=== PATIENT | male | born 1950 | race American Indian/Alaskan Native ===

== ENCOUNTER 2021-05-25 18:03 | Inpatient (IN) | payer SELFPAY ==
[2021-05-25] MEDS ORDERED: ONDANSETRON 4 MG/2 ML INJ ONE (18:38)
[2021-05-25] MEDS ORDERED: SODIUM CHLORIDE 0.9% 1000 ML 1,000 ML ONE (18:38)
[2021-05-25] MEDS ORDERED: SODIUM CHLORIDE 0.9% 1000 ML IV SOLN IV ONE (18:39)
--- NOTE | 2021-05-25 18:46 | Emergency Department Report ---
HPI - General Chief Complaint: Syncope Time Seen by Provider: 05/25/21 18:21 - HPI HPI: Room 19 The patient is a 70-year-old male present with a chief complaint of fatigue. Patient states his symptoms began today with just feeling weak and near syncopa l. Patient states he felt near syncopal because he felt lightheaded. Family has noticed the patient has had decreased p.o. intake for the past 3 days. The patient called his family today stating that he did not feel well and he felt like he was going to pass out. Family arrived on scene and noticed the patient at times had labored respirations. Has been no history of fever or cough. Patient admits to occasional shortness of breath. Patient has not been vaccinated against Covid. ED Past Medical Hx - Past Medical History Previous Medical History?: Yes Hx Hypertension: Yes - Surgical History Past Surgical History?: No - Family History Family history: no significant - Social History Smoking Status: Never Smoker Substance Use Type: None (Denies illicit drug use), Alcohol (Occasional) - Medications Home Medications: Home Medications Medication Instructions Recorded Confirmed Last Taken Type Amlodipine Besylate/Valsartan 1 each PO 05/25/21 05/25/21 08:00 History [Amlodipine-Valsartan 10-160 mg] Amoxicillin/K Clav Tab [Augmentin 1 each PO Q12HR 05/25/21 05/25/21 Unknown History 500 MG TAB] ED Review of Systems ROS: Stated complaint: AMS Other details as noted in HPI Constitutional: malaise. denies: fever Eyes: denies: eye pain ENT: denies: throat pain Respiratory: shortness of breath. denies: cough Cardiovascular: denies: chest pain Endocrine: no symptoms reported Gastrointestinal: nausea. denies: abdominal pain Genitourinary: denies: dysuria Musculoskeletal: denies: back pain Neurological: denies: headache Physical Exam - Physical Exam Vital Signs: Vital Signs 05/25/21 18:03 Temperature 95.6 F L Pulse Rate 117 H Respiratory 23 Rate Blood Pressure 92/36 O2 Sat by Pulse 91 Oximetry Physical Exam: GENERAL: The patient is well-developed well-nourished male lying on stretcher appearing fatigued but in no acute distress. [] HEENT: Normocephalic. Atraumatic. Extraocular motions are intact. Patient has moist mucous membranes. NECK: Supple. Trachea midline CHEST/LUNGS: Clear to auscultation. There is no respiratory distress noted. HEART/CARDIOVASCULAR: Regular. There is tachycardia. There is no gallop rub or murmur. ABDOMEN: Abdomen is soft, nontender. Patient has normal bowel sounds. There is no abdominal distention. SKIN: There is no rash. There is no edema. There is no diaphoresis. NEURO: The patient is awake and oriented but appears fatigued. The patient is cooperative. The patient has no focal neurologic deficits. The patient has normal speech MUSCULOSKELETAL: There is no evidence of acute injury. ED Course Vital Signs 05/25/21 18:03 Temperature 95.6 F L Pulse Rate 117 H Respiratory 23 Rate Blood Pressure 92/36 O2 Sat by Pulse 91 Oximetry - Reevaluation(s) Reevaluation #1: 05/25/21 23:58 CT head negative. Will initiate heparin drip until VQ scan can be performed - Central Line Placement Right Femoral Consent Obtained: verbal consent, written consent Time Out Performed: Yes Patient Placed on Monitor/Pulse Ox: Yes MD Prep: mask, gown, gloves Central Line Prep: Chlorhexidine scrub Local Anesthesia Used: Lidocaine 1% Amount of Anesthesia Used (mls): 5 Ultrasound Used for Placement: No Central Line Lumen Inserted: triple Reason for Insertion: High Alert Medication Bloods Obtained for Lab: No Central Line Position: good blood return, all ports aspirated, flus Dressing Applied: Tegaderm Patient Tolerated Procedure: no complications Complications: none ED Medical Decision Making - Lab Data Result diagrams: 05/25/21 18:53 05/25/21 18:53 Laboratory Tests 05/25/21 05/25/21 05/25/21 18:53 18:53 18:53 WBC 25.7 H RBC 2.77 L Hgb 7.9 L Hct 26.2 L MCV 95 H MCH 29 MCHC 30 L RDW 13.9 Plt Count 321 Lymph % (Auto) [employer]ship Wolfe % (Auto) [employer] Internship Eos % (Auto) [employer] Baso % (Auto) [employer] Internship Lymph # (Auto) [employer]ment Internship Wolfe # (Auto) Proc[employer]ment Internship Eos # (Auto) Proc[employer]ment Internship Baso # (Auto) Proc[employer]ment Internship Add Manual Diff Complete Total Counted 100 Seg Neutrophils % [employer] Seg Neuts % (Manual) 66.0 Band Neutrophils % 3.0 Lymphocytes % (Manual) 21.0 Monocytes % (Manual) 7.0 Basophils % (Manual) 1.0 Metamyelocytes % 2.0 Nucleated RBC % Not Reportable Seg Neutrophils # Proc[employer]ment Internship Seg Neutrophils # Man 17.0 H Band Neutrophils # 0.8 Lymphocytes # (Manual) 5.4 Abs React Lymphs (Man) 0.0 Monocytes # (Manual) 1.8 H Eosinophils # (Manual) 0.0 Basophils # (Manual) 0.3 H Metamyelocytes # 0.5 Myelocytes # 0.0 Promyelocytes # 0.0 Blast Cells # 0.0 WBC Morphology Not Reportable Hypersegmented Neuts Not Reportable Hyposegmented Neuts Not Reportable Hypogranular Neuts Not Reportable Smudge Cells Not Reportable Toxic Granulation Not Reportable Toxic Vacuolation Not Reportable Dohle Bodies Not Reportable Pelger-Huet Anomaly Not Reportable Chela Rods Not Reportable Platelet Estimate Consistent w auto Clumped Platelets Not Reportable Plt Clumps, EDTA Not Reportable Large Platelets Few Giant Platelets Not Reportable Platelet Satelliting Not Reportable Plt Morphology Comment Not Reportable RBC Morphology Not Reportable Dimorphic RBCs Not Reportable Polychromasia Not Reportable Hypochromasia Not Reportable Poikilocytosis Not Reportable Anisocytosis 1+ Microcytosis Not Reportable Macrocytosis Not Reportable Spherocytes Not Reportable Pappenheimer Bodies Not Reportable Sickle Cells Not Reportable Target Cells Not Reportable Tear Drop Cells Not Reportable Ovalocytes Not Reportable Helmet Cells Not Reportable [place] Bodies Not Reportable [place] Rings Not Reportable [place] Cells Not Reportable Bite Cells Not Reportable Crenated Cell Not Reportable Elliptocytes Not Reportable Acanthocytes (Spur) Not Reportable Rouleaux Not Reportable Hemoglobin C Crystals Not Reportable Schistocytes Not Reportable Malaria parasites Not Reportable Justin Bodies Not Reportable Hem Pathologist Commnt No D-Dimer Sodium 138 Potassium 4.4 Chloride 98.6 Carbon Dioxide 15 L Anion Gap 29 BUN 46 H Creatinine 1.9 H Estimated GFR 43 BUN/Creatinine Ratio 24 Glucose 187 H Lactic Acid 13.20 H* Calcium 8.7 Ferritin Total Bilirubin 0.80 AST 62 H ALT 57 H Alkaline Phosphatase 77 Lactate Dehydrogenase 191 H Troponin T < 0.010 C-Reactive Protein 0.00 Total Protein 6.0 L Albumin 2.8 L Albumin/Globulin Ratio 0.9 1105/25/21 05/25/21 18:53 18:53 21:09 WBC RBC Hgb Hct MCV MCH MCHC RDW Plt Count Lymph % (Auto) Wolfe % (Auto) Eos % (Auto) Baso % (Auto) Lymph # (Auto) [place] # (Auto) Eos # (Auto) Baso # (Auto) Add Manual Diff Total Counted Seg Neutrophils % Seg Neuts % (Manual) Band Neutrophils % Lymphocytes % (Manual) Monocytes % (Manual) Basophils % (Manual) Metamyelocytes % Nucleated RBC % Seg Neutrophils # Seg Neutrophils # Man Band Neutrophils # Lymphocytes # (Manual) Abs React Lymphs (Man) Monocytes # (Manual) Eosinophils # (Manual) Basophils # (Manual) Metamyelocytes # Myelocytes # Promyelocytes # Blast Cells # WBC Morphology Hypersegmented Neuts Hyposegmented Neuts Hypogranular Neuts Smudge Cells Toxic Granulation Toxic Vacuolation Dohle Bodies Pelger-Huet Anomaly Chela Rods Platelet Estimate Clumped Platelets Plt Clumps, EDTA Large Platelets Giant Platelets Platelet Satelliting Plt Morphology Comment RBC Morphology Dimorphic RBCs Polychromasia Hypochromasia Poikilocytosis Anisocytosis Microcytosis Macrocytosis Spherocytes Pappenheimer Bodies Sickle Cells Target Cells Tear Drop Cells Ovalocytes Helmet Cells [place] Bodies [place] Rings [place] Cells Bite Cells Crenated Cell Elliptocytes Acanthocytes (Spur) Rouleaux Hemoglobin C Crystals Schistocytes Malaria parasites Justin Bodies Hem Pathologist Commnt D-Dimer 5197.40 H Sodium Potassium Chloride Carbon Dioxide Anion Gap BUN Creatinine Estimated GFR BUN/Creatinine Ratio Glucose Lactic Acid 12.60 H* Calcium Ferritin 521.7 H Total Bilirubin AST ALT Alkaline Phosphatase Lactate Dehydrogenase Troponin T C-Reactive Protein Total Protein Albumin Albumin/Globulin Ratio - Radiology Data Radiology results: report reviewed (Chest x-ray, CT head), image reviewed (Chest x-ray, CT head) interpreted by me: Chest x-ray-no definite focal infiltrates, no pneumothorax [facility] [address] [place] [address] XRay Report Signed Patient: SHARITA KENT MR#: [id number] [birth year] : 1950 Acct:[id number] Age/Sex: 70 / M ADM Date: 05/25/21 Loc: ED Attending Dr: Ordering Physician: ELIO GLEZ MD Date of Service: 05/25/21 Procedure(s): XR chest 1V ap Accession Number(s): [id number] cc: ELIO GLEZ MD Fluoro Time In Minutes: CHEST 1 VIEW 05/25/2021 6:01 PM INDICATION / CLINICAL INFORMATION: Hypoxia, hypotension. COMPARISON: None available. FINDINGS: SUPPORT DEVICES: None. HEART / MEDIASTINUM: No significant abnormality. LUNGS / PLEURA: No significant pulmonary or pleural abnormality. No pneumothorax. ADDITIONAL FINDINGS: No significant additional findings. IMPRESSION: 1. No acute findings. Signer Name: Richard Thapa MD Signed: 05/25/2021 7:15 PM Workstation Name: [id number] Transcribed By: KEITH Dictated By: Richard Thapa MD Electronically Authenticated By: Richard Thapa MD Signed Date/Time: 05/25/211914 DD/ 13 TD/TT: [place] [address] Cat Scan Report Signed Patient: SHARITA KENT MR#: [id number] [birth year] : 1950 Acct:[id number] Age/Sex: 70 / M ADM Date: 05/25/21 Loc: CC1 [id number]: SHAKIRA DARBY MD Ordering Physician: ELIO GLEZ MD Date of Service: 05/25/21 Procedure(s): CT head/brain wo con Accession Number(s): [id number] cc: ELIO GLEZ MD CT HEAD WITHOUT CONTRAST INDICATION: Altered mental status. TECHNIQUE: All CT scans at this location are performed using CT dose reduction for ALARA by means of automated exposure control. COMPARISON: None available. FINDINGS: HEMORRHAGE: None. EXTRA-AXIAL SPACES: Normal in size and morphology for the patient's age. VENTRICULAR SYSTEM: Normal in size and morphology for the patient's age. BRAIN PARENCHYMA: No acute findings. MIDLINE SHIFT OR HERNIATION: None. ORBITS: Normal as visualized. SOFT TISSUES OF HEAD: Normal. CALVARIUM: Normal. VISUALIZED PARANASAL SINUSES AND MASTOID AIR CELLS: Clear. ADDITIONAL FINDINGS: None. IMPRESSION: 1. No acute intracranial abnormality. Signer Name: Asher Gomez MD Signed: 05/25/2021 11:42 PM Workstation Name: [id number] Transcribed By: SW Dictated By: Asher Gomez MD Electro nically Authenticated By: Asher Gomez MD Signed Date/Time: 05/25/212341 DD/ 39 TD/TT: Print Cancel - Medical Decision Making Patient has elevated D-dimer however creatinine is 1.9 precluding CTA at this time. A VQ scan was ordered however I was informed that the camera on machine is not working so we are subsequently unable to obtain a VQ scan tonight - Differential Diagnosis Sepsis Critical care attestation.: If time is entered above; I have spent that time in minutes in the direct care of this critically ill patient, excluding procedure time. ED Disposition Clinical Impression: Altered mental status, Shortness of breath, Suspected COVID-19 virus infection, Tachycardia, Sepsis, Hypothermia, Renal insufficiency Disposition: ADMITTED INPATIENT Is pt being admited?: Yes Does the pt Need Aspirin: No Condition: Serious Time of Disposition: 20:08 (Hospitalist called (Dr. Neville))
--- NOTE | 2021-05-25 19:19 | XRay Report ---
CHEST 1 VIEW 05/25/2021 6:01 PM INDICATION / CLINICAL INFORMATION: Hypoxia, hypotension. COMPARISON: None available. FINDINGS: SUPPORT DEVICES: None. HEART / MEDIASTINUM: No significant abnormality. LUNGS / PLEURA: No significant pulmonary or pleural abnormality. No pneumothorax. ADDITIONAL FINDINGS: No significant additional findings. IMPRESSION: 1. No acute findings. Signer Name: Richard Thapa MD Signed: 05/25/2021 7:15 PM Workstation Name: [id number]
[2021-05-25 19:20] LABS: Hematocrit 26.2 % (35.5-45.6); Hemoglobin 7.9 gm/dl (11.8-15.2); Mean Corpuscular HGB Conc 30 % (32-34); Mean Corpuscular Volume 95 fl (84-94); Platelet Count 321 K/mm3 (140-440); Red Blood Count 2.77 M/mm3 (3.65-5.03); Red Cell Distribution Width 13.9 % (13.2-15.2)
[2021-05-25 19:32] LABS: Alanine Aminotransferase 57 units/L (7-56); Albumin 2.8 g/dL (3.9-5); BUN/Creatinine Ratio 24; Blood Urea Nitrogen 46 mg/dL (9-20); Calcium 8.7 mg/dL (8.4-10.2); Hemolysis Index 17
[2021-05-25] MEDS ORDERED: cefTRIAXone/NS 1 GM/50 ML 1 GM/50 ML BAG IV ONE (20:06)
[2021-05-25] MEDS ORDERED: AZITHROMYCIN/NS 500 MG/250 ML 500 MG/250 ML BAG IV ONE (20:06)
[2021-05-25] MEDS ORDERED: PIPERACILLIN/TAZOBACTAM 3.375 3.375 GM/50 ML BAG IV ONE (20:42)
[2021-05-25 21:21] LABS: Band Neutrophils # (Manual) 0.8 K/mm3; Total Cells Counted 100
[2021-05-25 21:22] LABS: Anisocytosis 1+; Large Platelets Few; Platelet Estimate Consistent w Auto
[2021-05-25] MEDS: NORepinephrine/NS 8 MG-250 ML 8 MG/250 ML INFUS..BTL IV SCH (21:56)
[2021-05-25] MEDS ORDERED: oxyCODONE /ACETAMINOPHEN 5-325MG TAB PO PRN (22:25)
[2021-05-25] MEDS ORDERED: HYDROmorphone 1 MG/1 ML INJ IV PRN (22:25)
[2021-05-25] MEDS ORDERED: ONDANSETRON 4 MG/2 ML INJ IV PRN (22:25)
[2021-05-25] MEDS ORDERED: ALBUTEROL 2.5 MG/3 ML NEBU IH PRN (22:25)
[2021-05-25] MEDS ORDERED: ACETAMINOPHEN 325 MG TAB PO PRN (22:25)
[2021-05-25] MEDS ORDERED: ONDANSETRON 4 MG/2 ML INJ IV ONE (22:28)
[2021-05-25] MEDS ORDERED: SODIUM CHLORIDE 0.9% 1000 ML 1,000 ML IV SCH (22:30)
--- NOTE | 2021-05-25 22:34 | History and Physical Report ---
History of Present Illness Date of examination: 05/25/21 Date of admission: 05/25/21 21:54 Chief complaint: Syncope Weakness History of present illness: 70-year-old male with history of high blood pressure was brought to the emergency room because of fatigue. Patient states his symptoms began today with just feeling weak and near syncopal. Patient states he felt near syncopal because he felt lightheaded. Family has noticed the patient has had decreased p.o. intake for the past 3 days. The patient called his family today stating that he did not feel well and he felt like he was going to pass out. Family arrived on scene and noticed the patient at times had labored respirations. Has been no history of fever or cough. Patient admits to occasional shortness of breath. Patient has not been vaccinated against Covid. In the emergency room patient WBC is 25.7, hemoglobin 7.9 hematocrit 26.2, patient D-dimer is 5197.40. Lactic acid 13.20 BUN of 46 creatinine 1.9. We are going to admit the patient with a diagnosis of sepsis suspected Covid infection metabolic encephalopathy and acute on chronic kidney failure. We consulted critical care and nephrology evaluation Med rec is done Past History Past Medical History: hypertension Medications and Allergies Allergies Allergy/AdvReac Type Severity Reaction Status Date / Time No Known Allergies Allergy Verified 05/25/21 21:01 Home Medications Medication Instructions Recorded Confirmed Last Taken Type Amlodipine Besylate/Valsartan 1 each PO 05/25/21 05/25/21 08:00 History [Amlodipine-Valsartan 10-160 mg] Amoxicillin/K Clav Tab [Augmentin 1 each PO Q12HR 05/25/21 05/25/21 Unknown History 500 MG TAB] Active Meds: Active Medications NORepinephrine/NS 8 MG-250 ML (Norepinephrine/Ns 8 Mg-250 Ml (Double Conc)) 8 mg in 250 mls @ 3.75 mls/hr IV TITRATE STEPHANE; Protocol Last Admin: 05/25/21 21:56 Dose: 5 mcg/min, 9.375 mls/hr Documented by: Review of Systems All systems: negative Constitutional: fatigue, weakness, other (Lightheaded decreased p.o. intake for the last 3 days) Cardiovascular: syncope Exam - Constitutional Vitals: Temp Pulse Resp BP Pulse Ox 98.5 F 112 H 32 H 85/49 97 05/25/21 21:08 05/25/21 21:45 05/25/21 21:45 05/25/21 21:45 05/25/21 21:45 General appearance: Present: mild distress - EENT Eyes: Present: PERRL ENT: hearing intact, clear oral mucosa - Neck Neck: Present: supple, normal ROM - Respiratory Respiratory effort: normal Respiratory: bilateral: diminished - Cardiovascular Heart Sounds: Present: S1 & S2. Absent: rub, click - Extremities Extremities: pulses symmetrical, No edema Peripheral Pulses: within normal limits - Abdominal General gastrointestinal: Present: soft, non-tender, non-distended, normal bowel sounds Male genitourinary: Present: normal - Integumentary Integumentary: Present: clear, warm, dry - Musculoskeletal Musculoskeletal: gait normal, strength equal bilaterally - Psychiatric Psychiatric: appropriate mood/affect, intact judgment & insight - Neurologic Neurologic: CNII-XII intact, moves all extremities HEART Score - HEART Score Troponin: Troponin T < 0.010 ng/mL (0.00-0.029) 05/25/21 18:53 Results - Labs CBC & Chem 7: 05/25/21 18:53 05/25/21 18:53 Labs: Laboratory Last Values WBC 25.7 K/mm3 (4.5-11.0) H 05/25/21 18:53 RBC 2.77 M/mm3 (3.65-5.03) L 05/25/21 18:53 Hgb 7.9 gm/dl (11.8-15.2) L 05/25/21 18:53 Hct 26.2 % (35.5-45.6) L 05/25/21 18:53 MCV 95 fl (84-94) H 05/25/21 18:53 MCH 29 pg (28-32) 05/25/21 18:53 MCHC 30 % (32-34) L 05/25/21 18:53 RDW 13.9 % (13.2-15.2) 05/25/21 18:53 Plt Count 321 K/mm3 (140-440) 05/25/21 18:53 Lymph % (Auto) Donation Worker 05/25/21 18:53 [place] % (Auto) Donation Worker 05/25/21 18:53 Eos % (Auto) Donation Worker 05/25/21 18:53 Baso % (Auto) Donation Worker 05/25/21 18:53 Lymph # (Auto) Donation Worker 05/25/21 18:53 [place] # (Auto) Donation Worker 05/25/21 18:53 Eos # (Auto) Donation Worker 05/25/21 18:53 Baso # (Auto) Donation Worker 05/25/21 18:53 Add Manual Diff Complete 05/25/21 18:53 Total Counted 100 05/25/21 18:53 Seg Neutrophils % Donation Worker 05/25/21 18:53 Seg Neuts % (Manual) 66.0 % (40.0-70.0) 05/25/21 18:53 Band Neutrophils % 3.0 % 05/25/21 18:53 Lymphocytes % (Manual) 21.0 % (13.4-35.0) 05/25/21 18:53 Monocytes % (Manual) 7.0 % (0.0-7.3) 05/25/21 18:53 Basophils % (Manual) 1.0 % (0.0-1.8) 05/25/21 18:53 Metamyelocytes % 2.0 % 05/25/21 18:53 Nucleated RBC % Not Reportable 05/25/21 18:53 Seg Neutrophils # Donation Worker 05/25/21 18:53 Seg Neutrophils # Man 17.0 K/mm3 (1.8-7.7) H 05/25/21 18:53 Band Neutrophils # 0.8 K/mm3 05/25/21 18:53 Lymphocytes # (Manual) 5.4 K/mm3 (1.2-5.4) 05/25/21 18:53 Abs React Lymphs (Man) 0.0 K/mm3 05/25/21 18:53 Monocytes # (Manual) 1.8 K/mm3 (0.0-0.8) H 05/25/21 18:53 Eosinophils # (Manual) 0.0 K/mm3 (0.0-0.4) 05/25/21 18:53 Basophils # (Manual) 0.3 K/mm3 (0.0-0.1) H 05/25/21 18:53 Metamyelocytes # 0.5 K/mm3 05/25/21 18:53 Myelocytes # 0.0 K/mm3 05/25/21 18:53 Promyelocytes # 0.0 K/mm3 05/25/21 18:53 Blast Cells # 0.0 K/mm3 05/25/21 18:53 WBC Morphology Not Reportable 05/25/21 18:53 Hypersegmented Neuts Not Reportable 05/25/21 18:53 Hyposegmented Neuts Not Reportable 05/25/21 18:53 Hypogranular Neuts Not Reportable 05/25/21 18:53 Smudge Cells Not Reportable 05/25/21 18:53 Toxic Granulation Not Reportable 05/25/21 18:53 Toxic Vacuolation Not Reportable 05/25/21 18:53 Dohle Bodies Not Reportable 05/25/21 18:53 Pelger-Huet Anomaly Not Reportable 05/25/21 18:53 Chela Rods Not Reportable 05/25/21 18:53 Platelet Estimate Consistent w auto 05/25/21 18:53 Clumped Platelets Not Reportable 05/25/21 18:53 Plt Clumps, EDTA Not Reportable 05/25/21 18:53 Large Platelets Few 05/25/21 18:53 Giant Platelets Not Reportable 05/25/21 18:53 Platelet Satelliting Not Reportable 05/25/21 18:53 Plt Morphology Comment Not Reportable 05/25/21 18:53 RBC Morphology Not Reportable 05/25/21 18:53 Dimorphic RBCs Not Reportable 05/25/21 18:53 Polychromasia Not Reportable 05/25/21 18:53 Hypochromasia Not Reportable 05/25/21 18:53 Poikilocytosis Not Reportable 05/25/21 18:53 Anisocytosis 1+ 05/25/21 18:53 Microcytosis Not Reportable 05/25/21 18:53 Macrocytosis Not Reportable 05/25/21 18:53 Spherocytes Not Reportable 05/25/21 18:53 Pappenheimer Bodies Not Reportable 05/25/21 18:53 Sickle Cells Not Reportable 05/25/21 18:53 Target Cells Not Reportable 05/25/21 18:53 Tear Drop Cells Not Reportable 05/25/21 18:53 Ovalocytes Not Reportable 05/25/21 18:53 Helmet Cells Not Reportable 05/25/21 18:53 [place] Bodies Not Reportable 05/25/21 18:53 [place] Rings Not Reportable 05/25/21 18:53 Jeni Cells Not Reportable 05/25/21 18:53 Bite Cells Not Reportable 05/25/21 18:53 Crenated Cell Not Reportable 05/25/21 18:53 Elliptocytes Not Reportable 05/25/21 18:53 Acanthocytes (Spur) Not Reportable 05/25/21 18:53 Rouleaux Not Reportable 05/25/21 18:53 Hemoglobin C Crystals Not Reportable 05/25/21 18:53 Schistocytes Not Reportable 05/25/21 18:53 Malaria parasites Not Reportable 05/25/21 18:53 Justin Bodies Not Reportable 05/25/21 18:53 Hem Pathologist Commnt No 05/25/21 18:53 D-Dimer 5197.40 ng/mlDDU (0-234) H 05/25/21 18:53 Sodium 138 mmol/L (137-145) 05/25/21 18:53 Potassium 4.4 mmol/L (3.6-5.0) 05/25/21 18:53 Chloride 98.6 mmol/L (98-107) 05/25/21 18:53 Carbon Dioxide 15 mmol/L (22-30) L 05/25/21 18:53 Anion Gap 29 mmol/L 05/25/21 18:53 BUN 46 mg/dL (9-20) H 05/25/21 18:53 Creatinine 1.9 mg/dL (0.8-1.3) H 05/25/21 18:53 Estimated GFR 43 ml/min 05/25/21 18:53 BUN/Creatinine Ratio 24 % 05/25/21 18:53 Glucose 187 mg/dL (75-100) H 05/25/21 18:53 Lactic Acid 12.60 mmol/L (0.7-2.0) H* 05/25/21 21:09 Calcium 8.7 mg/dL (8.4-10.2) 05/25/21 18:53 Ferritin 521.7 ng/mL (30.0-300.0) H 05/25/21 18:53 Total Bilirubin 0.80 mg/dL (0.1-1.2) 05/25/21 18:53 AST 62 units/L (5-40) H 05/25/21 18:53 ALT 57 units/L (7-56) H 05/25/21 18:53 Alkaline Phosphatase 77 units/L (35-129) 05/25/21 18:53 Lactate Dehydrogenase 191 units/L (91-180) H 05/25/21 18:53 Troponin T < 0.010 ng/mL (0.00-0.029) 05/25/21 18:53 C-Reactive Protein 0.00 mg/dL (0.00-1.30) 05/25/21 18:53 Total Protein 6.0 g/dL (6.3-8.2) L 05/25/21 18:53 Albumin 2.8 g/dL (3.9-5) L 05/25/21 18:53 Albumin/Globulin Ratio 0.9 % 05/25/21 18:53 - Imaging and Cardiology Chest x-ray: report reviewed Assessment and Plan VTE prophylaxis?: Chemical Plan of care discussed with patient/family: Yes - Patient Problems (1) Sepsis Current Visit: Yes Status: Acute Plan to address problem: Admit the patient to the critical care unit. NPO. Normal saline at the rate of 100 cc/h. Rocephin 2 g IV daily and Zithromax 500 mg IV daily. We do the blood cultures sputum culture. Recheck CBC BMP and lactic acid in the morning. Reconsult critical care evaluation (2) Acute metabolic encephalopathy Current Visit: Yes Status: Acute Plan to address problem: Multifactorial most likely infection and renal failure. Oxygen via nasal catheter per minute normal saline 100 cc/h we will monitor the patient closely. 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 DuoNeb by nebulizer every 4 hours as needed. Rocephin 2 g IV daily. Zithromax 500 mg p.o. daily. We will send the Covid PCR. Follow Covid inflammatory marker. If needed please consult infectious disease (4) SHAINA (acute kidney injury) Current Visit: Yes Status: Acute Plan to address problem: Avoid nephrotoxic drug. Normal saline at the rate of 100 cc/h. We will hold amlodipine valsartan. Will consult nephrology for evaluation. Recheck BMP in the morning (5) Hypertension Current Visit: Yes Status: Acute Plan to address problem: Hydralazine 10 mg IV every 6 hours as needed. We will continue the home medication. We will monitor the patient closely (6) Hypothermia Current Visit: Yes Status: Acute Plan to address problem: We will put the patient on 1 blanket we monitor the patient closely (7) Elevated d-dimer Current Visit: Yes Status: Acute Plan to address problem: We are unable to do a CT scan PE protocol because of acute renal failure. We w ill do a VQ scan. We will put the patient on heparin drip as per protocol (8) DVT prophylaxis Current Visit: Yes Status: Acute Plan to address problem: Heparin drip as per protocol for DVT prophylaxis. Pepcid 20 mg IV every 12 hours for GI prophylaxis. Patient is a full code
[2021-05-25] MEDS ORDERED: hydrALAZINE 20 MG/1 ML INJ IV PRN (22:38)
[2021-05-25] MEDS ORDERED: HEPARIN 10,000 UNITS/10 ML VIAL IV PRN (22:42)
[2021-05-25] MEDS ORDERED: HEPARIN/ 0.45% NACL DRIP 25,000 UNIT/500 ML BAG IV SCH (23:00)
--- NOTE | 2021-05-25 23:47 | Cat Scan Report ---
CT HEAD WITHOUT CONTRAST INDICATION: Altered mental status. TECHNIQUE: All CT scans at this location are performed using CT dose reduction for ALARA by means of automated e xposure control. COMPARISON: None available. FINDINGS: HEMORRHAGE: None. EXTRA-AXIAL SPACES: Normal in size and morphology for the patient's age. VENTRICULAR SYSTEM: Normal in size and morphology for the patient's age. BRAIN PARENCHYMA: No acute findings. MIDLINE SHIFT OR HERNIATION: None. ORBITS: Normal as visualized. SOFT TISSUES OF HEAD: Normal. CALVARIUM: Normal. VISUALIZED PARANASAL SINUSES AND MASTOID AIR CELLS: Clear. ADDITIONAL FINDINGS: None. IMPRESSION: 1. No acute intracranial abnormality. Signer Name: Asher Gomez MD Signed: 05/25/2021 11:42 PM Workstation Name: [id number]
[2021-05-26 00:10] LABS: INR 1.52 (0.87-1.13)
[2021-05-26 00:11] LABS: Partial Thromboplastin Time 39.1 Sec. (24.2-36.6)
[2021-05-26 00:38] LABS: Hematocrit 20.7 % (35.5-45.6); Hemoglobin 6.6 gm/dl (11.8-15.2)
[2021-05-26] MEDS: IPRATROPIUM/ALBUTEROL SULFATE 3 ML AMPUL.NEB IH SCH ×4 (02:16→19:22)
[2021-05-26] MEDS ORDERED: DEXTROSE 50% IN WATER (25GM) 50 ML SYRINGE IV ONE ×3 (02:42→05:46)
[2021-05-26] MEDS ORDERED: SUCCINYLCHOLINE CHLORIDE 200 MG/10 ML INJ MDV ONE (02:42)
[2021-05-26] MEDS ORDERED: EPINEPHrine 1 MG/10 ML SYRINGE ONE ×2 (02:42→07:05)
[2021-05-26] MEDS ORDERED: CALCIUM CHLORIDE 1,000 MG/10 ML SYRINGE IV ONE ×2 (02:42→07:05)
[2021-05-26] MEDS ORDERED: SODIUM BICARB 8.4% 50 MEQ/50 ML SYRINGE IV ONE ×3 (02:42→07:05)
[2021-05-26] MEDS ORDERED: ATROPINE 0.1% (1 MG/10 ML) CARDIAC SYRINGE ONE ×2 (02:42→07:05)
--- NOTE | 2021-05-26 03:03 | Event Note ---
Date: 05/26/21 This patient's nurse called me into the room as the patient had a large amount of rectal bleeding and began having agonal breathing. Respiratory therapy was paged. The hospitalist was notified. The patient is unresponsive with shallow respirations and bradypnea. He began to have significant bradycardia so I gave instructions to give a dose of atropine. The patient had hypotension with Levophed being maxed out. With respiratory therapy at bedside I intubated the patient using a glide scope and a MAC 4 blade. He did not require any sedation or paralysis or any RSI meds. I was able to visualize the vocal cords and a 7.5 endotracheal tube was placed through the cords to about 24 cm at the lips. The bulb was inflated with about 7 cc of air. There was condensation seen within the endotracheal tube. There was good color change capnography. There was bilateral breath sounds heard with bag valve ventilation. About the time of th is intubation the patient appeared to lose his pulse and ACLS protocol was initiated. By this time the hospitalist, Dr. Moya, was at bedside and took over supervising ACLS protocol.
[2021-05-26] MEDS ORDERED: DEXTROSE 50% IN WATER (25GM) 50 ML SYRINGE IV PRN (03:15)
--- NOTE | 2021-05-26 03:25 | Event Note ---
Date: 05/26/21 Called by the nurse the patient is having large amount of rectal bleeding and has been agonal breathing. Patient was unresponsive with shallow respiration. Subsequently patient was intubated by the ER physician patient was given atropine. Patient lost pulse subsequently CPR was given as per ACLS protocol. Patient was given 5 epinephrine, 2 atropine, 2 -3 bicarb and calcium gluconate. Patient was given 1 shock. Patient regained ROSC. Patient is getting 2 unit of packed red blood cell. Heparin drip was discontinued. Patient was found hypoglycemic. Patient was given 2 ampoule of D50 and patient is put on D5 normal saline at the rate of 120 cc/h. We will recheck the CBC CMP cardiac enzyme and chest x-ray. Critical care and GI is consulted. Patient is put on Protonix drip. Prognosis is guarded.
[2021-05-26] MEDS ORDERED: SODIUM CHLORIDE 0.9% 500 ML 500 ML IV ONE ×2 (03:26→04:15)
[2021-05-26 03:56] LABS: Mean Corpuscular HGB Conc 30 % (32-34); Mean Corpuscular Volume 95 fl (84-94); Platelet Count 203 K/mm3 (140-440); Red Blood Count 1.76 M/mm3 (3.65-5.03); Red Cell Distribution Width 14.4 % (13.2-15.2)
[2021-05-26 03:57] LABS: Albumin 1.4 g/dL (3.9-5); Calcium 8.2 mg/dL (8.4-10.2)
[2021-05-26 03:58] LABS: Hematocrit 16.7 % (35.5-45.6)
[2021-05-26] MEDS ORDERED: D5W/0.9% NACL 1,000 ML IV SCH (04:00)
[2021-05-26] MEDS ORDERED: PANTOPRAZOLE 80 MG in SODIUM CHLORIDE 0.9% 100 ML IV SCH (04:00)
--- NOTE | 2021-05-26 04:18 | XRay Report ---
CHEST 1 VIEW INDICATION: E T TUBE PLACEMENT. COMPARISON: One day prior. FINDINGS: Support devices: Endotracheal tube has been placed in satisfactory position. Heart: Stable. Lungs/Pleura: No acute pulmonary or pleural findings. IMPRESSION: 1. No complications are seen after endotracheal tube placement. Signer Name: Asher Gomez MD Signed: 05/26/2021 4:13 AM Workstation Name: [id number]
[2021-05-26 04:43] LABS: Anisocytosis 1+; Band Neutrophils # (Manual) 3.3 K/mm3; Large Platelets Few; Nucleated Red Blood Cells 0.5 % (0.0-0.9); Platelet Estimate Consistent w Auto; Total Cells Counted 200
[2021-05-26] MEDS ORDERED: VANCOMYCIN 2,000 MG in SODIUM CHLORIDE 0.9% 500 ML 500 ML IV ONE (05:00)
[2021-05-26] MEDS ORDERED: CEFEPIME/NS 1 GM/100 ML 1 GM/100 ML BAG IV SCH (05:00)
[2021-05-26] MEDS ORDERED: VANCOMYCIN/NS 1 GM/250 ML 1 GM/250 ML BAG IV SCH (05:00)
[2021-05-26] MEDS ORDERED: CALCIUM GLUCONATE 1,000 MG in SODIUM CHLORIDE 0.9% 100 ML IV ONE (05:39)
[2021-05-26] MEDS ORDERED: INSULIN REGULAR, HUMAN 100 UNITS/1 ML IV ONE (05:44)
[2021-05-26] MEDS ORDERED: CALCIUM CHLORIDE 1,000 MG/10 ML SDV IVP ONE (05:45)
[2021-05-26] MEDS ORDERED: SODIUM POLYSTYRENE 15 GM/60 ML ORAL LIQD PO ONE (05:45)
[2021-05-26] MEDS ORDERED: HEPARIN 5,000 UNIT/1 ML VIAL SUB-Q SCH (06:00)
--- NOTE | 2021-05-26 06:54 | Event Note ---
Date: 05/26/21 Patient was coded again. CPR was given as per ACLS protocol. 2 epi 1 bicarb and 1 calcium gluconate is given patient regained ROSC. Patient WBC is 41.3. Hemoglobin 5.2 hematocrit 16.7. ABG showed pH 7.062, PCO2 25.6 PO2 148.1 O2 sat 98.7 Chemistry shows potassium of 6.1 bicarb 8 lactic acid 21.40 glucose 158 BUN 48 creatinine 2.6. Patient is on bicarb drip Levophed IV fluid and Protonix drip we consulted critical care GI and nephrology for evaluation. Talk with the patient sister and inform her about the condition. Prognosis is poor
[2021-05-26] MEDS: NORepinephrine/NS 8 MG-250 ML 8 MG/250 ML INFUS..BTL IV SCH ×4 (07:00→20:00)
[2021-05-26] MEDS: SODIUM BICARBONATE 150 MEQ in DEXTROSE 5% IN WATER 1,000 ML IV SCH ×3 (07:00→22:47)
[2021-05-26] MEDS ORDERED: EPINEPHrine 30 MG/30 ML INJ IV ONE (07:05)
[2021-05-26] MEDS ORDERED: DEXTROSE 50% IN WATER (25GM) 50 ML VIAL IV ONE (07:05)
[2021-05-26] MEDS ORDERED: SODIUM CHLORIDE 0.9% 1000 ML 1,000 ML ONE ×2 (07:41→08:06)
--- NOTE | 2021-05-26 08:24 | XRay Report ---
CHEST 1 VIEW 05/26/2021 7:14 AM INDICATION / CLINICAL INFORMATION: s/p code. COMPARISON: 05/26/2021 FINDINGS: SUPPORT DEVICES: ET tube is satisfactory position HEART / MEDIASTINUM: No significant abnormality. LUNGS / PLEURA: Mild increased pulmonary vascularity and opacities in bilateral lungs are slightly in creased no large pneumothorax Signer Name: Sorin Quick MD Signed: 05/26/2021 8:20 AM Workstation Name: [id number]
--- NOTE | 2021-05-26 08:25 | XRay Report ---
ABDOMEN 1 VIEW 05/26/2021 7:59 AM INDICATION / CLINICAL INFORMATION: NGT placement. COMPARISON: None available. FINDINGS: NG tube extends within the stomach. The sidehole may be just distal to the GE junction. Signer Name: Sorin Quick MD Signed: 05/26/2021 8:20 AM Workstation Name: [id number]
[2021-05-26] MEDS: VASOPRESSIN 20 UNIT in SODIUM CHLORIDE 0.9% 100 ML IV SCH ×2 (08:30→18:20)
[2021-05-26] MEDS: EPINEPHrine 1 MG/1 ML 16 MG in SODIUM CHLORIDE 0.9% 250ML 234 ML IV SCH ×2 (08:45→17:36)
--- NOTE | 2021-05-26 08:50 | Procedure Note ---
Date of procedure: 05/26/21 Pre-op diagnosis: ABLA, hemorrhagic shock, s/p cardiac arrest, acute hypoxic respiratory fail Post-op diagnosis: same Procedure: Min test completed. Ulnar pulse intact. Right radial A-line inserted using sterile technique. Area prepped with chlorhexidine and prepped with sterile field. Arterial line was placed using ultrasound; catheter advanced without difficulty. Line was sutured and tegaderm dressing applied. no biopatch available Arterial waveform observed on bedside monitor. Line flushed and zeroed. RN at bedside. Pt tolerated procedure well. VS remained unstable throughout procedure requiring vasopressor support (time spent placing line not included in daily critical care time) CCT 60 min Anesthesia: none Surgeon: JESSIE CORRALES Estimated blood loss: minimal Pathology: none Condition: critical Disposition: ICU
[2021-05-26] MEDS ORDERED: SODIUM CHLORIDE 0.9% 1000 ML 1,000 ML IV ONE ×3 (09:00→21:50)
[2021-05-26] MEDS: SODIUM BICARB 8.4% 50 MEQ/50 ML SYRINGE IV SCH ×2 (09:22→09:23)
[2021-05-26 09:30] LABS: Hematocrit 25.8 % (35.5-45.6); Hemoglobin 7.8 gm/dl (11.8-15.2); Mean Corpuscular HGB Conc 30 % (32-34); Mean Corpuscular Volume 91 fl (84-94); Platelet Count 193 K/mm3 (140-440); Red Blood Count 2.84 M/mm3 (3.65-5.03)
[2021-05-26 09:45] LABS: Albumin 1.5 g/dL (3.9-5)
[2021-05-26 09:54] LABS: INR 2.27 (0.87-1.13)
[2021-05-26] MEDS ORDERED: cefTRIAXone/NS 2 GM/100 ML 2 GM/100 ML BAG IV SCH ×2 (10:00→20:00)
[2021-05-26] MEDS ORDERED: FAMOTIDINE 20 MG/2 ML INJ IV SCH (10:00)
[2021-05-26] MEDS ORDERED: SODIUM CHLORIDE 0.9% 1000 ML 1,000 ML IV SCH (10:00)
[2021-05-26] MEDS ORDERED: AZITHROMYCIN 250 MG TAB PO SCH (10:00)
[2021-05-26] MEDS: CEFEPIME/NS 1 GM/100 ML 1 GM/100 ML BAG IV SCH ×2 (10:17→18:51)
[2021-05-26] MEDS: SODIUM CHLORIDE 0.9% 500 ML 500 ML IV PRN ×2 (10:18→13:29)
[2021-05-26 10:29] LABS: Partial Thromboplastin Time 63.6 Sec. (24.2-36.6)
[2021-05-26] MEDS: PHENYLEPHRINE 100 MG in SODIUM CHLORIDE 0.9% 90 ML IV SCH ×4 (10:30→22:55)
--- NOTE | 2021-05-26 10:36 | Gastroenterology Consultation ---
History of Present Illness - Reason for Consult Consult date: 05/26/21 GI Bleed Requesting physician: JESSIE CORRALES - History of Present Illness The patient is intubated and not responsive; hx is per the chart and staff. He was brought to the ER by family for weakness of 2-3 days. While there, initial workup was SHAINA on ?CKD, possible pneumonia, but while in the ER he had a Code Blue (has had 2 so far) with a large blood BM. His hct dropped from 25 to 15. He has rec'd 4 more units, and hct now 25 but is still on triple pressors and requiring boluses of epi to maintain BP. He has no old records here, nor are there large abdominal surgical scars. No antiacids on home med profile. Past History Past Medical History: hypertension Past Surgical History: Other (Unknown) Social history: other (Unknown) Family history: other (Unknown) Medications and Allergies Allergies Allergy/AdvReac Type Severity Reaction Status Date / Time No Known Allergies Allergy Verified 05/25/21 21:01 Home Medications Medication Instructions Recorded Confirmed Last Taken Type Amlodipine Besylate/Valsartan 1 each PO 05/25/21 05/25/21 08:00 History [Amlodipine-Valsartan 10-160 mg] Amoxicillin/K Clav Tab [Augmentin 1 each PO Q12HR 05/25/21 05/25/21 Unknown History 500 MG TAB] Active Meds: Active Medications Acetaminophen (Acetaminophen 325 Mg Tab) 650 mg PO Q4H PRN PRN Reason: Pain MILD(1-3)/Fever >100.5/MONSON Albuterol (Albuterol 2.5 Mg/3 Ml Nebu) 2.5 mg IH Q4HRT PRN PRN Reason: Shortness Of Breath Albuterol/Ipratropium (Ipratropium/Albuterol Sulfate 3 Ml Ampul.Neb) 1 ampul IH Q6HRT STEPHANE Last Admin: 05/26/21 09:10 Dose: 1 ampul Documented by: Dextrose (Dextrose 50% In Water (25gm) 50 Ml Syringe) 25 ml IV Q30MIN PRN; Protocol PRN Reason: Hypoglycemia Hydralazine HCl (Hydralazine 20 Mg/1 Ml Inj) 10 mg IV Q6H PRN PRN Reason: Blood Pressure Hydromorphone HCl (Hydromorphone 1 Mg/1 Ml Inj) 0.5 mg IV Q3H PRN PRN Reason: Pain , Severe (7-10) NORepinephrine/NS 8 MG-250 ML (Norepinephrine/Ns 8 Mg-250 Ml (Double Conc)) 8 mg in 250 mls @ 3.75 mls/hr IV TITRATE STEPHANE; Protocol Last Admin: 05/26/21 10:05 Dose: 30 mcg/min, 56.25 mls/hr Documented by: Dextrose/Sodium Chloride (D5ns) 1,000 mls @ 120 mls/hr IV DIRECT STEPHANE Pantoprazole Sodium 80 mg/ (Sodium Chloride) 100 mls @ 10 mls/hr IV DIRECT STEPHANE Azithromycin (Zithromax/Ns) 500 mg in 250 mls @ 250 mls/hr IV Q24H STEPHANE Cefepime HCl (Cefepime/Ns 1 Gm/100 Ml) 1 gm in 100 mls @ 200 mls/hr IV Q12H STEPHANE; Protocol Last Admin: 05/26/21 10:17 Dose: 200 mls/hr Documented by: Vancomycin HCl 1,500 mg/ (Sodium Chloride) 530 mls @ 333.333 mls/hr IV Q24H STEPHANE Sodium Bicarbonate 150 meq/ (Dextrose) 1,150 mls @ 125 mls/hr IV DIRECT STEPHANE Last Admin: 05/26/21 07:00 Dose: 125 mls/hr Documented by: Vasopressin 20 unit/ Sodium (Chloride) 101 mls @ 9.09 mls/hr IV TITR STEPHANE; Protocol Last Admin: 05/26/21 08:30 Dose: 0.03 units/min, 9.09 mls/hr Documented by: Epinephrine 16 mg/ Sodium (Chloride) 250 mls @ 1.875 mls/hr IV TITR STEPHANE; Protocol Last Admin: 05/26/21 08:45 Dose: 2 mcg/min, 1.875 mls/hr Documented by: Sodium Chloride (Nacl 0.9% 500 Ml) 500 mls @ 1 mls/hr IV DIRECT PRN PRN Reason: ARTERIAL LINE FLUSH Last Admin: 05/26/21 10:18 Dose: 1 mls/hr Documented by: Sodium Chloride (Nacl 0.9% 1000 Ml) 1,000 mls @ 999 mls/hr IV DIRECT STEPHANE Last Admin: 05/26/21 09:29 Dose: 999 mls/hr Documented by: Phenylephrine HCl 100 mg/ (Sodium Chloride) 100 mls @ 3 mls/hr IV TITR STEPHANE; Protocol Sodium Chloride (Nacl 0.9% 1000 Ml) 1,000 mls @ 999 mls/hr IV BOLUS ONE Stop: 05/26/21 11:00 Last Admin: 05/26/21 09:35 Dose: 999 mls/hr Documented by: Ondansetron HCl (Ondansetron 4 Mg/2 Ml Inj) 4 mg IV Q8H PRN PRN Reason: Nausea And Vomiting Sodium Bicarbonate (Sodium Bicarb 8.4% 50 Meq/50 Ml Syringe) 50 meq IV ONCE STEPHANE Stop: 05/27/21 08:01 Last Admin: 05/26/21 09:23 Dose: 50 meq Documented by: Sodium Chloride (Sodium Chloride 0.9% 10 Ml Flush Syringe) 10 ml IV BID STEPHANE Sodium Chloride (Sodium Chloride 0.9% 10 Ml Flush Syringe) 10 ml IV PRN PRN PRN Reason: LINE FLUSH I HAVE REVIEWED/RECONCILED MEDICATIONS Review of Systems - Review of Systems ROS unobtainable: due to endotracheal tube Exam - Constitutional Vital Signs: Temp Pulse Resp BP Pulse Ox 93.2 F L 122 H 31 H 76/43 99 05/26/21 06:18 05/26/21 09:10 05/26/21 09:10 05/26/21 08:00 05/26/21 08:00 General appearance: other (Unsedated but unresponsive; minimal movement on vent) - EENT Eyes: PERRL, EOM intact ENT: hearing intact, poor dentition, no thrush, other (NG tube with 500ml dark fluid) - Neck Neck: supple, normal ROM - Respiratory Respiratory effort: normal Respiratory: bilateral: CTA (Vent) - Cardiovascular Heart Rate: 125 Rhythm: regular Heart Sounds: Present: S1 & S2 Extremities: no ischemia Extremity abnormal: edema (1+ peripheral edema) - Gastrointestinal General gastrointestinal: Present: soft, non-tender, non-distended - Integumentary Integumentary: Present: clear, warm, dry - Neurologic Neurological: other (Unsedated and unresponsive) - Labs CBC & Chem 7: 05/26/21 09:11 05/26/21 09:11 Lab Results: Laboratory Results - last 24 hr 05/25/21 05/25/2121 18:53 18:53 18:53 WBC 25.7 H RBC 2.77 L Hgb 7.9 L Hct 26.2 L MCV 95 H MCH 29 MCHC 30 L RDW 13.9 Plt Count 321 Lymph % (Auto) Juice Scaleman [place] % (Auto) Juice Scaleman Eos % (Auto) Juice Scaleman Baso % (Auto) Juice Scaleman Lymph # (Auto) Juice Scaleman [place] # (Auto) Juice Scaleman Eos # (Auto) Juice Scaleman Baso # (Auto) Juice Scaleman Add Manual Diff Complete Total Counted 100 Seg Neutrophils % Juice Scaleman Seg Neuts % (Manual) 66.0 Band Neutrophils % 3.0 Lymphocytes % (Manual) 21.0 Monocytes % (Manual) 7.0 Basophils % (Manual) 1.0 Metamyelocytes % 2.0 Nucleated RBC % Not Reportable Seg Neutrophils # Juice Scaleman Seg Neutrophils # Man 17.0 H Band Neutrophils # 0.8 Lymphocytes # (Manual) 5.4 Abs React Lymphs (Man) 0.0 Monocytes # (Manual) 1.8 H Eosinophils # (Manual) 0.0 Basophils # (Manual) 0.3 H Metamyelocytes # 0.5 Myelocytes # 0.0 Promyelocytes # 0.0 Blast Cells # 0.0 WBC Morphology Not Reportable Hypersegmented Neuts Not Reportable Hyposegmented Neuts Not Reportable Hypogranular Neuts Not Reportable Smudge Cells Not Reportable Toxic Granulation Not Reportable Toxic Vacuolation Not Reportable Dohle Bodies Not Reportable Pelger-Huet Anomaly Not Reportable Chela Rods Not Reportable Platelet Estimate Consistent w auto Clumped Platelets Not Reportable Plt Clumps, EDTA Not Reportable Large Platelets Few Giant Platelets Not Reportable Platelet Satelliting Not Reportable Plt Morphology Comment Not Reportable RBC Morphology Not Reportable Dimorphic RBCs Not Reportable Polychromasia Not Reportable Hypochromasia Not Reportable Poikilocytosis Not Reportable Anisocytosis 1+ Microcytosis Not Reportable Macrocytosis Not Reportable Spherocytes Not Reportable Pappenheimer Bodies Not Reportable Sickle Cells Not Reportable Target Cells Not Reportable Tear Drop Cells Not Reportable Ovalocytes Not Reportable Helmet Cells Not Reportable Elos-Orchard Bodies Not Reportable Sunburst Rings Not Reportable Jeni Cells Not Reportable Bite Cells Not Reportable Crenated Cell Not Reportable Elliptocytes Not Reportable Acanthocytes (Spur) Not Reportable Rouleaux Not Reportable Hemoglobin C Crystals Not Reportable Schistocytes Not Reportable Malaria parasites Not Reportable Justin Bodies Not Reportable Hem Pathologist Commnt No PT INR APTT Fibrinogen D-Dimer Heparin Anti-Xa Level ABG pH POC ABG pCO2 POC ABG pO2 POC ABG HCO3 ABG O2 Saturation POC ABG Base Excess ABG Hemoglobin ABG Oxyhemoglobin ABG Methemoglobin ABG Sodium ABG Potassium ABG Chloride ABG Glucose Carboxyhemoglobin FiO2 % Sodium 138 Potassium 4.4 Chloride 98.6 Carbon Dioxide 15 L Anion Gap 29 BUN 46 H Creatinine 1.9 H Estimated GFR 43 BUN/Creatinine Ratio 24 Glucose 187 H POC Glucose Lactic Acid 13.20 H* Calcium 8.7 Phosphorus Magnesium Ferritin Total Bilirubin 0.80 AST 62 H ALT 57 H Alkaline Phosphatase 77 Lactate Dehydrogenase 191 H Troponin T < 0.010 C-Reactive Protein 0.00 Total Protein 6.0 L Albumin 2.8 L Albumin/Globulin Ratio 0.9 Arterial Blood Glucose Arterial Blood Ionized Calcium Blood Type Antibody Screen Crossmatch 05/25/21 05/25/21 05/25/21 18:53 18:53 21:09 WBC RBC Hgb Hct MCV MCH MCHC RDW Plt Count Lymph % (Auto) [place] % (Auto) Eos % (Auto) Baso % (Auto) Lymph # (Auto) [place] # (Auto) Eos # (Auto) Baso # (Auto) Add Manual Diff Total Counted Seg Neutrophils % Seg Neuts % (Manual) Band Neutrophils % Lymphocytes % (Manual) Monocytes % (Manual) Basophils % (Manual) Metamyelocytes % Nucleated RBC % Seg Neutrophils # Seg Neutrophils # Man Band Neutrophils # Lymphocytes # (Manual) Abs React Lymphs (Man) Monocytes # (Manual) Eosinophils # (Manual) Basophils # (Manual) Metamyelocytes # Myelocytes # Promyelocytes # Blast Cells # WBC Morphology Hypersegmented Neuts Hyposegmented Neuts Hypogranular Neuts Smudge Cells Toxic Granulation Toxic Vacuolation Dohle Bodies Pelger-Huet Anomaly Chela Rods Platelet Estimate Clumped Platelets Plt Clumps, EDTA Large Platelets Giant Platelets Platelet Satelliting Plt Morphology Comment RBC Morphology Dimorphic RBCs Polychromasia Hypochromasia Poikilocytosis Anisocytosis Microcytosis Macrocytosis Spherocytes Pappenheimer Bodies Sickle Cells Target Cells Tear Drop Cells Ovalocytes Helmet Cells Leos-Orchard Bodies Sunburst Rings Earling Cells Bite Cells Crenated Cell Elliptocytes Acanthocytes (Spur) Rouleaux Hemoglobin C Crystals Schistocytes Malaria parasites Justni Bodies Hem Pathologist Commnt PT INR APTT Fibrinogen D-Dimer 5197.40 H Heparin Anti-Xa Level ABG pH POC ABG pCO2 POC ABG pO2 POC ABG HCO3 ABG O2 Saturation POC ABG Base Excess ABG Hemoglobin ABG Oxyhemoglobin ABG Methemoglobin ABG Sodium ABG Potassium ABG Chloride ABG Glucose Carboxyhemoglobin FiO2 % Sodium Potassium Chloride Carbon Dioxide Anion Gap BUN Creatinine Estimated GFR BUN/Creatinine Ratio Glucose POC Glucose Lactic Acid 12.60 H* Calcium Phosphorus Magnesium Ferritin 521.7 H Total Bilirubin AST ALT Alkaline Phosphatase Lactate Dehydrogenase Troponin T C-Reactive Protein Total Protein Albumin Albumin/Globulin Ratio Arterial Blood Glucose Arterial Blood Ionized Calcium Blood Type Antibody Screen Crossmatch 05/25/21 05/25/21 05/25/21 23:35 23:35 23:35 WBC RBC Hgb 6.6 L Hct 20.7 L MCV MCH MCHC RDW Plt Count 253 Lymph % (Auto) [place] % (Auto) Eos % (Auto) Baso % (Auto) Lymph # (Auto) [place] # (Auto) Eos # (Auto) Baso # (Auto) Add Manual Diff Total Counted Seg Neutrophils % Seg Neuts % (Manual) Band Neutrophils % Lymphocytes % (Manual) Monocytes % (Manual) Basophils % (Manual) Metamyelocytes % Nucleated RBC % Seg Neutrophils # Seg Neutrophils # Man Band Neutrophils # Lymphocytes # (Manual) Abs React Lymphs (Man) Monocytes # (Manual) Eosinophils # (Manual) Basophils # (Manual) Metamyelocytes # Myelocytes # Promyelocytes # Blast Cells # WBC Morphology Hypersegmented Neuts Hyposegmented Neuts Hypogranular Neuts Smudge Cells Toxic Granulation Toxic Vacuolation Dohle Bodies Pelger-Huet Anomaly Chela Rods Platelet Estimate Clumped Platelets Plt Clumps, EDTA Large Platelets Giant Platelets Platelet Satelliting Plt Morphology Comment RBC Morphology Dimorphic RBCs Polychromasia Hypochromasia Poikilocytosis Anisocytosis Microcytosis Macrocytosis Spherocytes Pappenheimer Bodies Sickle Cells Target Cells Tear Drop Cells Ovalocytes Helmet Cells Leos-Orchard Bodies Sunburst Rings Earling Cells Bite Cells Crenated Cell Elliptocytes Acanthocytes (Spur) Rouleaux Hemoglobin C Crystals Schistocytes Malaria parasites Justin Bodies Hem Pathologist Commnt PT 19.8 H INR 1.52 H APTT 39.1 H Fibrinogen D-Dimer Heparin Anti-Xa Level ABG pH POC ABG pCO2 POC ABG pO2 POC ABG HCO3 ABG O2 Saturation POC ABG Base Excess ABG Hemoglobin ABG Oxyhemoglobin ABG Methemoglobin ABG Sodium ABG Potassium ABG Chloride ABG Glucose Carboxyhemoglobin FiO2 % Sodium Potassium Chloride Carbon Dioxide Anion Gap BUN Creatinine Estimated GFR BUN/Creatinine Ratio Glucose POC Glucose Lactic Acid 12.00 H* Calcium Phosphorus Magnesium Ferritin Total Bilirubin AST ALT Alkaline Phosphatase Lactate Dehydrogenase Troponin T C-Reactive Protein Total Protein Albumin Albumin/Globulin Ratio Arterial Blood Glucose Arterial Blood Ionized Calcium Blood Type Antibody Screen Crossmatch 05/26/21 05/26/21 05/26/21 03:07 03:20 03:24 WBC 41.3 H* RBC 1.76 L Hgb 5.0 L* Hct 16.7 L* MCV 95 H MCH 28 MCHC 30 L RDW 14.4 Plt Count 203 Lymph % (Auto) [place] % (Auto) Eos % (Auto) Baso % (Auto) Lymph # (Auto) [place] # (Auto) Eos # (Auto) Baso # (Auto) Add Manual Diff Complete Total Counted 200 Seg Neutrophils % Seg Neuts % (Manual) 80.5 H Band Neutrophils % 8.0 Lymphocytes % (Manual) 5.5 L Monocytes % (Manual) 4.0 Basophils % (Manual) 1.0 Metamyelocytes % 1.0 Nucleated RBC % 0.5 Seg Neutrophils # Seg Neutrophils # Man 33.2 H Band Neutrophils # 3.3 Lymphocytes # (Manual) 2.3 Abs React Lymphs (Man) 0.0 Monocytes # (Manual) 1.7 H Eosinophils # (Manual) 0.0 Basophils # (Manual) 0.4 H Metamyelocytes # 0.4 Myelocytes # 0.0 Promyelocytes # 0.0 Blast Cells # 0.0 WBC Morphology Not Reportable Hypersegmented Neuts Not Reportable Hyposegmented Neuts Not Reportable Hypogranular Neuts Not Reportable Smudge Cells Not Reportable Toxic Granulation Not Reportable Toxic Vacuolation Not Reportable Dohle Bodies Not Reportable Pelger-Huet Anomaly Not Reportable Chela Rods Not Reportable Platelet Estimate Consistent w auto Clumped Platelets Not Reportable Plt Clumps, EDTA Not Reportable Large Platelets Few Giant Platelets Not Reportable Platelet Satelliting Not Reportable Plt Morphology Comment Not Reportable RBC Morphology Not Reportable Dimorphic RBCs Not Reportable Polychromasia Not Reportable Hypochromasia Not Reportable Poikilocytosis Not Reportable Anisocytosis 1+ Microcytosis Not Reportable Macrocytosis Not Reportable Spherocytes Not Reportable Pappenheimer Bodies Not Reportable Sickle Cells Not Reportable Target Cells Not Reportable Tear Drop Cells Not Reportable Ovalocytes Not Reportable Helmet Cells Not Reportable Leos-[place] Bodies Not Reportable Sunburst Rings Not Reportable Earling Cells Not Reportable Bite Cells Not Reportable Crenated Cell Not Reportable Elliptocytes Not Reportable Acanthocytes (Spur) Not Reportable Rouleaux Not Reportable Hemoglobin C Crystals Not Reportable Schistocytes Not Reportable Malaria parasites Not Reportable Justin Bodies Not Reportable Hem Pathologist Commnt No PT INR APTT Fibrinogen D-Dimer Heparin Anti-Xa Level ABG pH POC ABG pCO2 POC ABG pO2 POC ABG HCO3 ABG O2 Saturation POC ABG Base Excess ABG Hemoglobin ABG Oxyhemoglobin ABG Methemoglobin ABG Sodium ABG Potassium ABG Chloride ABG Glucose Carboxyhemoglobin FiO2 % Sodium Potassium Chloride Carbon Dioxide Anion Gap BUN Creatinine Estimated GFR BUN/Creatinine Ratio Glucose POC Glucose < 10 L Lactic Acid Calcium Phosphorus Magnesium Ferritin Total Bilirubin AST ALT Alkaline Phosphatase Lactate Dehydrogenase Troponin T C-Reactive Protein Total Protein Albumin Albumin/Globulin Ratio Arterial Blood Glucose Arterial Blood Ionized Calcium Blood Type O POSITIVE Antibody Screen Negative Crossmatch See Detail 05/26/21 05/26/21 05/26/21 03:24 03:24 03:42 WBC RBC Hgb Hct MCV MCH MCHC RDW Plt Count Lymph % (Auto) [place] % (Auto) Eos % (Auto) Baso % (Auto) Lymph # (Auto) [place] # (Auto) Eos # (Auto) Baso # (Auto) Add Manual Diff Total Counted Seg Neutrophils % Seg Neuts % (Manual) Band Neutrophils % Lymphocytes % (Manual) Monocytes % (Manual) Basophils % (Manual) Metamyelocytes % Nucleated RBC % Seg Neutrophils # Seg Neutrophils # Man Band Neutrophils # Lymphocytes # (Manual) Abs React Lymphs (Man) Monocytes # (Manual) Eosinophils # (Manual) Basophils # (Manual) Metamyelocytes # Myelocytes # Promyelocytes # Blast Cells # WBC Morphology Hypersegmented Neuts Hyposegmented Neuts Hypogranular Neuts Smudge Cells Toxic Granulation Toxic Vacuolation Dohle Bodies Pelger-Huet Anomaly Chela Rods Platelet Estimate Clumped Platelets Plt Clumps, EDTA Large Platelets Giant Platelets Platelet Satelliting Plt Morphology Comment RBC Morphology Dimorphic RBCs Polychromasia Hypochromasia Poikilocytosis Anisocytosis Microcytosis Macrocytosis Spherocytes Pappenheimer Bodies Sickle Cells Target Cells Tear Drop Cells Ovalocytes Helmet Cells Leos-Orchard Bodies Sunburst Rings Jeni Cells Bite Cells Crenated Cell Elliptocytes Acanthocytes (Spur) Rouleaux Hemoglobin C Crystals Schistocytes Malaria parasites Justin Bodies Hem Pathologist Commnt PT INR APTT 152.2 H* Fibrinogen D-Dimer Heparin Anti-Xa Level ABG pH POC ABG pCO2 POC ABG pO2 POC ABG HCO3 ABG O2 Saturation POC ABG Base Excess ABG Hemoglobin ABG Oxyhemoglobin ABG Methemoglobin ABG Sodium ABG Potassium ABG Chloride ABG Glucose Carboxyhemoglobin FiO2 % Sodium 141 Potassium 6.1 H* D Chloride 101.5 Carbon Dioxide 8 L* D Anion Gap 38 BUN 48 H Creatinine 2.6 H Estimated GFR 30 BUN/Creatinine Ratio 18 Glucose 478 H POC Glucose Lactic Acid 21.40 H* Calcium 8.2 L Phosphorus Magnesium Ferritin Total Bilirubin 0.90 AST 1587 H ALT 1311 H Alkaline Phosphatase 64 Lactate Dehydrogenase Troponin T C-Reactive Protein Total Protein 3.2 L D Albumin 1.4 L Albumin/Globulin Ratio 0.8 Arterial Blood Glucose Arterial Blood Ionized Calcium Blood Type Antibody Screen Crossmatch 05/26/21 05/26/21 05/26/21 03:46 05:27 05:56 WBC RBC Hgb Hct MCV MCH MCHC RDW Plt Count Lymph % (Auto) [place] % (Auto) Eos % (Auto) Baso % (Auto) Lymph # (Auto) [place] # (Auto) Eos # (Auto) Baso # (Auto) Add Manual Diff Total Counted Seg Neutrophils % Seg Neuts % (Manual) Band Neutrophils % Lymphocytes % (Manual) Monocytes % (Manual) Basophils % (Manual) Metamyelocytes % Nucleated RBC % Seg Neutrophils # Seg Neutrophils # Man Band Neutrophils # Lymphocytes # (Manual) Abs React Lymphs (Man) Monocytes # (Manual) Eosinophils # (Manual) Basophils # (Manual) Metamyelocytes # Myelocytes # Promyelocytes # Blast Cells # WBC Morphology Hypersegmented Neuts Hyposegmented Neuts Hypogranular Neuts Smudge Cells Toxic Granulation Toxic Vacuolation Dohle Bodies Pelger-Huet Anomaly Chela Rods Platelet Estimate Clumped Platelets Plt Clumps, EDTA Large Platelets Giant Platelets Platelet Satelliting Plt Morphology Comment RBC Morphology Dimorphic RBCs Polychromasia Hypochromasia Poikilocytosis Anisocytosis Microcytosis Macrocytosis Spherocytes Pappenheimer Bodies Sickle Cells Target Cells Tear Drop Cells Ovalocytes Helmet Cells Leos-Orchard Bodies Sunburst Rings Jeni Cells Bite Cells Crenated Cell Elliptocytes Acanthocytes (Spur) Rouleaux Hemoglobin C Crystals Schistocytes Malaria parasites Justin Bodies Hem Pathologist Commnt PT INR APTT Fibrinogen D-Dimer Heparin Anti-Xa Level ABG pH 7.062 L POC ABG pCO2 25.6 L POC ABG pO2 148.1 H POC ABG HCO3 7.1 ABG O2 Saturation 98.7 POC ABG Base Excess -21.4 ABG Hemoglobin 7.5 L ABG Oxyhemoglobin 96.9 ABG Methemoglobin 0.3 ABG Sodium 137.6 ABG Potassium 6.5 H ABG Chloride 110.0 H ABG Glucose 134 H Carboxyhemoglobin 1.5 FiO2 % 80.0 Sodium Potassium Chloride Carbon Dioxide Anion Gap BUN Creatinine Estimated GFR BUN/Creatinine Ratio Glucose POC Glucose 167 H 128 H Lactic Acid Calcium Phosphorus Magnesium Ferritin Total Bilirubin AST ALT Alkaline Phosphatase Lactate Dehydrogenase Troponin T C-Reactive Protein Total Protein Albumin Albumin/Globulin Ratio Arterial Blood Glucose 134 H Arterial Blood Ionized Calcium 4.4 L Blood Type Antibody Screen Crossmatch 05/26/21 05/26/21 05/26/21 06:38 07:12 07:19 WBC RBC Hgb Hct MCV MCH MCHC RDW Plt Count Lymph % (Auto) [place] % (Auto) Eos % (Auto) Baso % (Auto) Lymph # (Auto) [place] # (Auto) Eos # (Auto) Baso # (Auto) Add Manual Diff Total Counted Seg Neutrophils % Seg Neuts % (Manual) Band Neutrophils % Lymphocytes % (Manual) Monocytes % (Manual) Basophils % (Manual) Metamyelocytes % Nucleated RBC % Seg Neutrophils # Seg Neutrophils # Man Band Neutrophils # Lymphocytes # (Manual) Abs React Lymphs (Man) Monocytes # (Manual) Eosinophils # (Manual) Basophils # (Manual) Metamyelocytes # Myelocytes # Promyelocytes # Blast Cells # WBC Morphology Hypersegmented Neuts Hyposegmented Neuts Hypogranular Neuts Smudge Cells Toxic Granulation Toxic Vacuolation Dohle Bodies Pelger-Huet Anomaly Chela Rods Platelet Estimate Clumped Platelets Plt Clumps, EDTA Large Platelets Giant Platelets Platelet Satelliting Plt Morphology Comment RBC Morphology Dimorphic RBCs Polychromasia Hypochromasia Poikilocytosis Anisocytosis Microcytosis Macrocytosis Spherocytes Pappenheimer Bodies Sickle Cells Target Cells Tear Drop Cells Ovalocytes Helmet Cells Leos-Orchard Bodies Sunburst Rings Earling Cells Bite Cells Crenated Cell Elliptocytes Acanthocytes (Spur) Rouleaux Hemoglobin C Crystals Schistocytes Malaria parasites Justin Bodies Hem Pathologist Commnt PT 27.0 H INR 2.27 H APTT 63.6 H* Fibrinogen 108 L* D-Dimer 8612.82 H Heparin Anti-Xa Level 0.10 L ABG pH POC ABG pCO2 POC ABG pO2 POC ABG HCO3 ABG O2 Saturation POC ABG Base Excess ABG Hemoglobin ABG Oxyhemoglobin ABG Methemoglobin ABG Sodium ABG Potassium ABG Chloride ABG Glucose Carboxyhemoglobin FiO2 % Sodium Potassium Chloride Carbon Dioxide Anion Gap BUN Creatinine Estimated GFR BUN/Creatinine Ratio Glucose POC Glucose 158 H 124 H Lactic Acid Calcium Phosphorus Magnesium Ferritin Total Bilirubin AST ALT Alkaline Phosphatase Lactate Dehydrogenase Troponin T C-Reactive Protein Total Protein Albumin Albumin/Globulin Ratio Arterial Blood Glucose Arterial Blood Ionized Calcium Blood Type Antibody Screen Crossmatch 05/26/21 05/26/21 05/26/21 07:34 09:11 09:11 WBC 29.1 H RBC 2.84 L Hgb 7.8 L Hct 25.8 L D MCV 91 MCH 28 MCHC 30 L RDW 15.0 Plt Count 193 Lymph % (Auto) [place] % (Auto) Eos % (Auto) Baso % (Auto) Lymph # (Auto) [place] # (Auto) Eos # (Auto) Baso # (Auto) Add Manual Diff Total Counted Seg Neutrophils % Seg Neuts % (Manual) Band Neutrophils % Lymphocytes % (Manual) Monocytes % (Manual) Basophils % (Manual) Metamyelocytes % Nucleated RBC % Seg Neutrophils # Seg Neutrophils # Man Band Neutrophils # Lymphocytes # (Manual) Abs React Lymphs (Man) Monocytes # (Manual) Eosinophils # (Manual) Basophils # (Manual) Metamyelocytes # Myelocytes # Promyelocytes # Blast Cells # WBC Morphology Hypersegmented Neuts Hyposegmented Neuts Hypogranular Neuts Smudge Cells Toxic Granulation Toxic Vacuolation Dohle Bodies Pelger-Huet Anomaly Chela Rods Platelet Estimate Clumped Platelets Plt Clumps, EDTA Large Platelets Giant Platelets Platelet Satelliting Plt Morphology Comment RBC Morphology Dimorphic RBCs Polychromasia Hypochromasia Poikilocytosis Anisocytosis Microcytosis Macrocytosis Spherocytes Pappenheimer Bodies Sickle Cells Target Cells Tear Drop Cells Ovalocytes Helmet Cells Leos-[place] Bodies Sunburst Rings Jeni Cells Bite Cells Crenated Cell Elliptocytes Acanthocytes (Spur) Rouleaux Hemoglobin C Crystals Schistocytes Malaria parasites Justin Bodies Hem Pathologist Commnt PT INR APTT Fibrinogen D-Dimer Heparin Anti-Xa Level ABG pH 7.048 L POC ABG pCO2 29.7 L POC ABG pO2 79.9 L POC ABG HCO3 8.0 ABG O2 Saturation 91.1 POC ABG Base Excess -20.9 ABG Hemoglobin 7.9 L ABG Oxyhemoglobin 89.6 L ABG Methemoglobin 0.3 ABG Sodium 141.1 ABG Potassium 5.2 H ABG Chloride 109.0 H ABG Glucose 144 H Carboxyhemoglobin 1.3 FiO2 % 60.0 Sodium 149 H D Potassium 4.8 D Chloride 107.6 H Carbon Dioxide 11 L Anion Gap 35 BUN 51 H Creatinine 2.5 H Estimated GFR 31 BUN/Creatinine Ratio 20 Glucose 150 H POC Glucose Lactic Acid Calcium 7.0 L Phosphorus 7.30 H Magnesium 2.30 Ferritin Total Bilirubin 1.00 AST 4071 H ALT 2728 H Alkaline Phosphatase 93 Lactate Dehydrogenase Troponin T C-Reactive Protein Total Protein 3.2 L Albumin 1.5 L Albumin/Globulin Ratio 0.9 Arterial Blood Glucose 144 H Arterial Blood Ionized Calcium Blood Type Antibody Screen Crossmatch 05/26/21 09:11 WBC RBC Hgb Hct MCV MCH MCHC RDW Plt Count Lymph % (Auto) [place] % (Auto) Eos % (Auto) Baso % (Auto) Lymph # (Auto) [place] # (Auto) Eos # (Auto) Baso # (Auto) Add Manual Diff Total Counted Seg Neutrophils % Seg Neuts % (Manual) Band Neutrophils % Lymphocytes % (Manual) Monocytes % (Manual) Basophils % (Manual) Metamyelocytes % Nucleated RBC % Seg Neutrophils # Seg Neutrophils # Man Band Neutrophils # Lymphocytes # (Manual) Abs React Lymphs (Man) Monocytes # (Manual) Eosinophils # (Manual) Basophils # (Manual) Metamyelocytes # Myelocytes # Promyelocytes # Blast Cells # WBC Morphology Hypersegmented Neuts Hyposegmented Neuts Hypogranular Neuts Smudge Cells Toxic Granulation Toxic Vacuolation Dohle Bodies Pelger-Huet Anomaly Chela Rods Platelet Estimate Clumped Platelets Plt Clumps, EDTA Large Platelets Giant Platelets Platelet Satelliting Plt Morphology Comment RBC Morphology Dimorphic RBCs Polychromasia Hypochromasia Poikilocytosis Anisocytosis Microcytosis Macrocytosis Spherocytes Pappenheimer Bodies Sickle Cells Target Cells Tear Drop Cells Ovalocytes Helmet Cells Leos-Orchard Bodies Sunburst Rings Earling Cells Bite Cells Crenated Cell Elliptocytes Acanthocytes (Spur) Rouleaux Hemoglobin C Crystals Schistocytes Malaria parasites Justin Bodies Hem Pathologist Commnt PT INR APTT Fibrinogen D-Dimer Heparin Anti-Xa Level ABG pH POC ABG pCO2 POC ABG pO2 POC ABG HCO3 ABG O2 Saturation POC ABG Base Excess ABG Hemoglobin ABG Oxyhemoglobin ABG Methemoglobin ABG Sodium ABG Potassium ABG Chloride ABG Glucose Carboxyhemoglobin FiO2 % Sodium Potassium Chloride Carbon Dioxide Anion Gap BUN Creatinine Estimated GFR BUN/Creatinine Ratio Glucose POC Glucose Lactic Acid 21.80 H* Calcium Phosphorus Magnesium Ferritin Total Bilirubin AST ALT Alkaline Phosphatase Lactate Dehydrogenase Troponin T C-Reactive Protein Total Protein Albumin Albumin/Globulin Ratio Arterial Blood Glucose Arterial Blood Ionized Calcium Blood Type Antibody Screen Crossmatch Assessment and Plan - Patient Problems (1) GI bleed Current Visit: Yes Status: Acute Plan to address problem: - We can consider diagnostic EGD if the BP can stabilize and arrhythmias decrease. - Protonix gtt started; avoid NSAIDs. - Volume resuscitation; coagulopathy correction. (2) Cardiac arrest Current Visit: Yes Status: Acute
[2021-05-26 10:39] LABS: Band Neutrophils # (Manual) 6.1 K/mm3; Giant Platelets Few; Large Platelets Few; Myelocytes # (Manual) 1.5 K/mm3; Total Cells Counted 100
[2021-05-26 10:40] LABS: Platelet Estimate Consistent w Auto
[2021-05-26 10:41] LABS: Toxic Vacuolation 1+
--- NOTE | 2021-05-26 11:07 | Consultation ---
History of Present Illness Consult date: 05/26/21 Reason for Consult: post cardiac arrest,COVID-19 Positive, GI bleeding History of present illness: Syncope Weakness History of present illness: 70-year-old male with history of high blood pressure was brought to the e mergency room because of fatigue. Patient states his symptoms began today with just feeling weak and near syncopal. Patient states he felt near syncopal because he felt lightheaded. Family has noticed the patient has had decreased p.o. intake for the past 3 days. The patient called his family today stating that he did not feel well and he felt like he was going to pass out. Family arrived on scene and noticed the patient at times had labored respirations. Has been no history of fever or cough. Patient admits to occasional shortness of breath. Patient has not been vaccinated against Covid. In the emergency room patient WBC is 25.7, hemoglobin 7.9 hematocrit 26.2, patient D-dimer is 5197.40. Lactic acid 13.20 BUN of 46 creatinine 1.9. We are going to admit the patient with a diagnosis of sepsis suspected Covid infection metabolic encephalopathy and acute on chronic kidney failure. early this am pt. had cardiac arrest X 2 times patient is intubated and not responsive; hx is per the chart and staff. in the ER he had a Code Blue (has had 2 so far) with a large blood BM. His hct dropped from 25 to 15. He has rec'd 4 more units, and hct now 25 but is still on triple pressors and requiring boluses of epi to maintain BP. He has no old records here, nor are there large abdominal surgical scars. No antiacids on home med profile. 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 pt. is on no sedation . he is hypothermic with temp,#93.2 currently on heating blanket Med rec is done Past History Past Medical History: hypertension Medications and Allergies Allergies Allergy/AdvReac Type Severity Reaction Status Date / Time No Known Allergies Allergy Verified 05/25/21 21:01 Home Medications Medication Instructions Recorded Confirmed Last Taken Type Amlodipine Besylate/Valsartan 1 each PO 05/25/21 05/25/21 08:00 History [Amlodipine-Valsartan 10-160 mg] Amoxicillin/K Clav Tab [Augmentin 1 each PO Q12HR 05/25/21 05/25/21 Unknown History 500 MG TAB] Active Meds: Active Medications NORepinephrine/NS 8 MG-250 ML (Norepinephrine/Ns 8 Mg-250 Ml (Double Conc)) 8 mg in 250 mls @ 3.75 mls/hr IV TITRATE STEPHANE; Protocol Last Admin: 05/25/21 21:56 Dose: 5 mcg/min, 9.375 mls/hr Documented by: Review of Systems All systems: negative Constitutional: fatigue, weakness, other (Lightheaded decreased p.o. intake for the last 3 days) Cardiovascular: syncope Past History Past Medical History: hypertension Past Surgical History: Other (Unknown) Social history: other (Unknown) Family history: other (Unknown) Medications and Allergies Allergies Allergy/AdvReac Type Severity Reaction Status Date / Time No Known Allergies Allergy Verified 05/25/21 21:01 Home Medications Medication Instructions Recorded Confirmed Last Taken Type Amlodipine Besylate/Valsartan 1 each PO 05/25/21 05/25/21 08:00 History [Amlodipine-Valsartan 10-160 mg] Amoxicillin/K Clav Tab [Augmentin 1 each PO Q12HR 05/25/21 05/25/21 Unknown History 500 MG TAB] Active Meds: Active Medications Acetaminophen (Acetaminophen 325 Mg Tab) 650 mg PO Q4H PRN PRN Reason: Pain MILD(1-3)/Fever >100.5/[place] Albuterol (Albuterol 2.5 Mg/3 Ml Nebu) 2.5 mg IH Q4HRT PRN PRN Reason: Shortness Of Breath Albuterol/Ipratropium (Ipratropium/Albuterol Sulfate 3 Ml Ampul.Neb) 1 ampul IH Q6HRT [facility] Last Admin: 05/26/21 09:10 Dose: 1 ampul Documented by: Dextrose (Dextrose 50% In Water (25gm) 50 Ml Syringe) 25 ml IV Q30MIN PRN; Protocol PRN Reason: Hypoglycemia Hydralazine HCl (Hydralazine 20 Mg/1 Ml Inj) 10 mg IV Q6H PRN PRN Reason: Blood Pressure Hydromorphone HCl (Hydromorphone 1 Mg/1 Ml Inj) 0.5 mg IV Q3H PRN PRN Reason: Pain , Severe (7-10) NORepinephrine/NS 8 MG-250 ML (Norepinephrine/Ns 8 Mg-250 Ml (Double Conc)) 8 mg in 250 mls @ 3.75 mls/hr IV TITRATE STEPHANE; Protocol Last Admin: 05/26/21 10:05 Dose: 30 mcg/min, 56.25 mls/hr Documented by: Dextrose/Sodium Chloride (D5ns) 1,000 mls @ 120 mls/hr IV DIRECT STEPHANE Pantoprazole Sodium 80 mg/ (Sodium Chloride) 100 mls @ 10 mls/hr IV DIRECT STEPHANE Azithromycin (Zithromax/Ns) 500 mg in 250 mls @ 250 mls/hr IV Q24H STEPHANE Cefepime HCl (Cefepime/Ns 1 Gm/100 Ml) 1 gm in 100 mls @ 200 mls/hr IV Q12H STEPHANE; Protocol Last Admin: 05/26/21 10:17 Dose: 200 mls/hr Documented by: Vancomycin HCl 1,500 mg/ (Sodium Chloride) 530 mls @ 333.333 mls/hr IV Q24H STEPHANE Sodium Bicarbonate 150 meq/ (Dextrose) 1,150 mls @ 125 mls/hr IV DIRECT STEPHANE Last Admin: 05/26/21 07:00 Dose: 125 mls/hr Documented by: Vasopressin 20 unit/ Sodium (Chloride) 101 mls @ 9.09 mls/hr IV TITR STEPHANE; Protocol Last Admin: 05/26/21 08:30 Dose: 0.03 units/min, 9.09 mls/hr Documented by: Epinephrine 16 mg/ Sodium (Chloride) 250 mls @ 1.875 mls/hr IV TITR STEPHANE; Protocol Last Admin: 05/26/21 08:45 Dose: 2 mcg/min, 1.875 mls/hr Documented by: Sodium Chloride (Nacl 0.9% 500 Ml) 500 mls @ 1 mls/hr IV DIRECT PRN PRN Reason: ARTERIAL LINE FLUSH Last Admin: 05/26/21 10:18 Dose: 1 mls/hr Documented by: Sodium Chloride (Nacl 0.9% 1000 Ml) 1,000 mls @ 999 mls/hr IV DIRECT STEPHANE Last Admin: 05/26/21 09:29 Dose: 999 mls/hr Documented by: Phenylephrine HCl 100 mg/ (Sodium Chloride) 100 mls @ 3 mls/hr IV TITR STEPHANE; Protocol Ondansetron HCl (Ondansetron 4 Mg/2 Ml Inj) 4 mg IV Q8H PRN PRN Reason: Nausea And Vomiting Sodium Bicarbonate (Sodium Bicarb 8.4% 50 Meq/50 Ml Syringe) 50 meq IV ONCE STEPHANE Stop: 05/27/21 08:01 Last Admin: 05/26/21 09:23 Dose: 50 meq Documented by: Sodium Chloride (Sodium Chloride 0.9% 10 Ml Flush Syringe) 10 ml IV BID STEPHANE Sodium Chloride (Sodium Chloride 0.9% 10 Ml Flush Syringe) 10 ml IV PRN PRN PRN Reason: LINE FLUSH Physical Examination - Vital Signs Vital Signs: Vital Signs Temp Pulse Resp BP Pulse Ox 95.6 F L 117 H 23 92/36 91 05/25/21 18:03 05/25/21 18:03 05/25/21 18:03 05/25/21 18:03 05/25/21 18:03 - Constitutional General appearance: other (unresponsive ) - EENT EENT: Present: PERRL, mucous membranes moist - Respiratory Respiratory: Present: lungs clear, rhonchi - Cardiovascular Cardiovascular: Present: regular rate, normal S1, normal S2 Extremities: Present: no peripheral edema bilatateraly, no clubbing, cyanosis - Gastrointestinal Gastrointestinal: Present: normoactive bowel sounds - Integumentary Integumentary: Present: normal - Neurologic Cranial nerve examination: PERRL, other (eyes slightly deviated to left EMO is slightly intact , pupils reactive 3mm , no corneal no gag , no spontaneous breathing ) Detailed motor examination: other (no movment to stimuli , no posturing is noted) Results - Laboratory Findings CBC and BMP: 05/26/21 09:11 05/26/21 09:11 Abnormal Lab Findings: Abnormal Labs 05/25/21 05/25/21 05/25/21 18:53 18:53 18:53 WBC 25.7 H RBC 2.77 L Hgb 7.9 L Hct 26.2 L MCV 95 H MCHC 30 L Seg Neuts % (Manual) Lymphocytes % (Manual) Nucleated RBC % Seg Neutrophils # Man 17.0 H Lymphocytes # (Manual) Monocytes # (Manual) 1.8 H Basophils # (Manual) 0.3 H PT INR APTT Fibrinogen D-Dimer Heparin Anti-Xa Level ABG pH POC ABG pCO2 POC ABG pO2 ABG Hemoglobin ABG Oxyhemoglobin ABG Potassium ABG Chloride ABG Glucose Sodium Potassium Chloride Carbon Dioxide 15 L BUN 46 H Creatinine 1.9 H Glucose 187 H POC Glucose Lactic Acid 13.20 H* Calcium Phosphorus Ferritin AST 62 H ALT 57 H Lactate Dehydrogenase 191 H Total Protein 6.0 L Albumin 2.8 L Arterial Blood Glucose Arterial Blood Ionized Calcium Crossmatch 05/25/21 05/25/21 05/25/21 18:53 18:53 21:09 WBC RBC Hgb Hct MCV MCHC Seg Neuts % (Manual) Lymphocytes % (Manual) Nucleated RBC % Seg Neutrophils # Man Lymphocytes # (Manual) Monocytes # (Manual) Basophils # (Manual) PT INR APTT Fibrinogen D-Dimer 5197.40 H Heparin Anti-Xa Level ABG pH POC ABG pCO2 POC ABG pO2 ABG Hemoglobin ABG Oxyhemoglobin ABG Potassium ABG Chloride ABG Glucose Sodium Potassium Chloride Carbon Dioxide BUN Creatinine Glucose POC Glucose Lactic Acid 12.60 H* Calcium Phosphorus Ferritin 521.7 H AST ALT Lactate Dehydrogenase Total Protein Albumin Arterial Blood Glucose Arterial Blood Ionized Calcium Crossmatch 05/25/21 05/25/21 05/25/21 23:35 23:35 23:35 WBC RBC Hgb 6.6 L Hct 20.7 L MCV MCHC Seg Neuts % (Manual) Lymphocytes % (Manual) Nucleated RBC % Seg Neutrophils # Man Lymphocytes # (Manual) Monocytes # (Manual) Basophils # (Manual) PT 19.8 H INR 1.52 H APTT 39.1 H Fibrinogen D-Dimer Heparin Anti-Xa Level ABG pH POC ABG pCO2 POC ABG pO2 ABG Hemoglobin ABG Oxyhemoglobin ABG Potassium ABG Chloride ABG Glucose Sodium Potassium Chloride Carbon Dioxide BUN Creatinine Glucose POC Glucose Lactic Acid 12.00 H* Calcium Phosphorus Ferritin AST ALT Lactate Dehydrogenase Total Protein Albumin Arterial Blood Glucose Arterial Blood Ionized Calcium Crossmatch 05/26/21 05/26/21 05/26/21 03:07 03:20 03:24 WBC 41.3 H* RBC 1.76 L Hgb 5.0 L* Hct 16.7 L* MCV 95 H MCHC 30 L Seg Neuts % (Manual) 80.5 H Lymphocytes % (Manual) 5.5 L Nucleated RBC % Seg Neutrophils # Man 33.2 H Lymphocytes # (Manual) Monocytes # (Manual) 1.7 H Basophils # (Manual) 0.4 H PT INR APTT Fibrinogen D-Dimer Heparin Anti-Xa Level ABG pH POC ABG pCO2 POC ABG pO2 ABG Hemoglobin ABG Oxyhemoglobin ABG Potassium ABG Chloride ABG Glucose Sodium Potassium Chloride Carbon Dioxide BUN Creatinine Glucose POC Glucose < 10 L Lactic Acid Calcium Phosphorus Ferritin AST ALT Lactate Dehydrogenase Total Protein Albumin Arterial Blood Glucose Arterial Blood Ionized Calcium Crossmatch See Detail 05/26/21 05/26/21 05/26/21 03:24 03:24 03:42 WBC RBC Hgb Hct MCV MCHC Seg Neuts % (Manual) Lymphocytes % (Manual) Nucleated RBC % Seg Neutrophils # Man Lymphocytes # (Manual) Monocytes # (Manual) Basophils # (Manual) PT INR APTT 152.2 H* Fibrinogen D-Dimer Heparin Anti-Xa Level ABG pH POC ABG pCO2 POC ABG pO2 ABG Hemoglobin ABG Oxyhemoglobin ABG Potassium ABG Chloride ABG Glucose Sodium Potassium 6.1 H* D Chloride Carbon Dioxide 8 L* D BUN 48 H Creatinine 2.6 H Glucose 478 H POC Glucose Lactic Acid 21.40 H* Calcium 8.2 L Phosphorus Ferritin AST 1587 H ALT 1311 H Lactate Dehydrogenase Total Protein 3.2 L D Albumin 1.4 L Arterial Blood Glucose Arterial Blood Ionized Calcium Crossmatch 05/26/21 05/26/21 05/26/21 03:46 05:27 05:56 WBC RBC Hgb Hct MCV MCHC Seg Neuts % (Manual) Lymphocytes % (Manual) Nucleated RBC % Seg Neutrophils # Man Lymphocytes # (Manual) Monocytes # (Manual) Basophils # (Manual) PT INR APTT Fibrinogen D-Dimer Heparin Anti-Xa Level ABG pH 7.062 L POC ABG pCO2 25.6 L POC ABG pO2 148.1 H ABG Hemoglobin 7.5 L ABG Oxyhemoglobin ABG Potassium 6.5 H ABG Chloride 110.0 H ABG Glucose 134 H Sodium Potassium Chloride Carbon Dioxide BUN Creatinine Glucose POC Glucose 167 H 128 H Lactic Acid Calcium Phosphorus Ferritin AST ALT Lactate Dehydrogenase Total Protein Albumin Arterial Blood Glucose 134 H Arterial Blood Ionized Calcium 4.4 L Crossmatch 05/26/21 05/26/21 05/26/21 06:38 07:12 07:19 WBC RBC Hgb Hct MCV MCHC Seg Neuts % (Manual) Lymphocytes % (Manual) Nucleated RBC % Seg Neutrophils # Man Lymphocytes # (Manual) Monocytes # (Manual) Basophils # (Manual) PT 27.0 H INR 2.27 H APTT 63.6 H* Fibrinogen 108 L* D-Dimer 8612.82 H Heparin Anti-Xa Level 0.10 L ABG pH POC ABG pCO2 POC ABG pO2 ABG Hemoglobin ABG Oxyhemoglobin ABG Potassium ABG Chloride ABG Glucose Sodium Potassium Chloride Carbon Dioxide BUN Creatinine Glucose POC Glucose 158 H 124 H Lactic Acid Calcium Phosphorus Ferritin AST ALT Lactate Dehydrogenase Total Protein Albumin Arterial Blood Glucose Arterial Blood Ionized Calcium Crossmatch 05/26/21 05/26/21 05/26/21 07:34 09:11 09:11 WBC 29.1 H RBC 2.84 L Hgb 7.8 L Hct 25.8 L D MCV MCHC 30 L Seg Neuts % (Manual) Lymphocytes % (Manual) 3.0 L Nucleated RBC % 3.0 H Seg Neutrophils # Man 17.8 H Lymphocytes # (Manual) 0.9 L Monocytes # (Manual) Basophils # (Manual) PT INR APTT Fibrinogen D-Dimer Heparin Anti-Xa Level ABG pH 7.048 L POC ABG pCO2 29.7 L POC ABG pO2 79.9 L ABG Hemoglobin 7.9 L ABG Oxyhemoglobin 89.6 L ABG Potassium 5.2 H ABG Chloride 109.0 H ABG Glucose 144 H Sodium 149 H D Potassium Chloride 107.6 H Carbon Dioxide 11 L BUN 51 H Creatinine 2.5 H Glucose 150 H POC Glucose Lactic Acid Calcium 7.0 L Phosphorus 7.30 H Ferritin AST 4071 H ALT 2728 H Lactate Dehydrogenase Total Protein 3.2 L Albumin 1.5 L Arterial Blood Glucose 144 H Arterial Blood Ionized Calcium Crossmatch 05/26/21 09:11 WBC RBC Hgb Hct MCV MCHC Seg Neuts % (Manual) Lymphocytes % (Manual) Nucleated RBC % Seg Neutrophils # Man Lymphocytes # (Manual) Monocytes # (Manual) Basophils # (Manual) PT INR APTT Fibrinogen D-Dimer Heparin Anti-Xa Level ABG pH POC ABG pCO2 POC ABG pO2 ABG Hemoglobin ABG Oxyhemoglobin ABG Potassium ABG Chloride ABG Glucose Sodium Potassium Chloride Carbon Dioxide BUN Creatinine Glucose POC Glucose Lactic Acid 21.80 H* Calcium Phosphorus Ferritin AST ALT Lactate Dehydrogenase Total Protein Albumin Arterial Blood Glucose Arterial Blood Ionized Calcium Crossmatch Assessment and Plan Assessment and Plan VTE prophylaxis?: Chemical Plan of care discussed with patient/family: Yes - Patient Problems #pt. presented with diffuse weakness X 2 days in ER he had cardiac arrest X2 and resuscitated. -he is with low BP on multiple pressor agent with current BP80/50 - unable to do CT brain due to above -pt. is not sedated unresponsive -he is with multiple organ failure and or sepsis with possible DIC and GI bleeding -over all prognosis is poor -EKG is remarkable for new onset AF # Sepsis -Admit the patient to the critical care unit. NPO. Normal saline at the rate of 100 cc/h. Rocephin 2 g IV daily and Zithromax 500 mg IV daily. We do the blood cultures sputum culture. Recheck CBC BMP and lactic acid in the morning. Reconsult critical care evaluation # Acute metabolic encephalopathy -Multifactorial most likely infection and renal failure. Oxygen via nasal catheter per minute normal saline 100 cc/h we will monitor the patient closely. # Suspected COVID-19 virus infection -Oxygen per nasal current manager of international pulmonate. DuoNeb by nebulizer every 4 hours as needed. Rocephin 2 g IV daily. Zithromax 500 mg p.o. daily. We will send the Covid PCR. Follow Covid inflammatory marker. If needed please consult infectious disease # SHAINA (acute kidney injury) -Avoid nephrotoxic drug. Normal saline at the rate of 100 cc/h. We will hold amlodipine valsartan. Will consult nephrology for evaluation. Recheck BMP in the morning #Hx of Hypertension he is Hypotensive currently on pressor agent # Hypothermia We will put the patient on 1 blanket we monitor the patient closely # Elevated d-dimer -We are unable to do a CT scan PE protocol because of acute renal failure. We will do a VQ scan. We will put the patient on heparin drip as per protocol (8) DVT prophylaxis - Pepcid 20 mg IV every 12 hours for GI prophylaxis. Patient is a full code prognosis is poor due to X 2 time of cardiac arrest and currently multiorgan failure D/W family will follow along EEG is ordered by ICU team will try to do even though pt. is hypothermic .
--- NOTE | 2021-05-26 11:20 | Consultation ---
History of Present Illness Consult date: 05/26/21 Requesting physician: JESSIE CORRALES Consult reason: cardiac arrest History of present illness: Patient is a 70-year-old male with a past medical history of hypertension who is brought to the ED for complaint of weakness and near syncope x1 day. History taken from chart due to patient being intubated at time of interview. Per documentation family has noticed that the patient has decreased p.o. intake for the past 3 days and they reported he did not feel well and felt like he was going to pass out. They also reported noticing he had labored breathing. While in the ED patient was noted to have agonal breathing and large amount of rectal bleeding. Patient was then intubated and around time of intubation patient lost pulse and ACLS was initiated. Following administration of epi atropine ROSC was regained. Patient also lost pulse overnight ACLS was initiated and ROSC was achieved. Of note patient is not vaccinated for COVID-19. Work-up showed patient to have leukocytosis 41.9, hyperkalemia 6.9, and elevated D-dimer. Patient is previously unknown to our practice. Cardiology is consulted for status post cardiac arrest. Past History Past Medical History: hypertension Past Surgical History: Other (Unknown) Social history: other (Unknown) Family history: other (Unknown) Medications and Allergies Allergies Allergy/AdvReac Type Severity Reaction Status Date / Time No Known Allergies Allergy Verified 05/25/21 21:01 Home Medications Medication Instructions Recorded Confirmed Last Taken Type Amlodipine Besylate/Valsartan 1 each PO 05/25/21 05/25/21 08:00 History [Amlodipine-Valsartan 10-160 mg] Amoxicillin/K Clav Tab [Augmentin 1 each PO Q12HR 05/25/21 05/25/21 Unknown History 500 MG TAB] Active Meds: Active Medications Acetaminophen (Acetaminophen 325 Mg Tab) 650 mg PO Q4H PRN PRN Reason: Pain MILD(1-3)/Fever >100.5/MONSON Albuterol (Albuterol 2.5 Mg/3 Ml Nebu) 2.5 mg IH Q4HRT PRN PRN Reason: Shortness Of Breath Albuterol/Ipratropium (Ipratropium/Albuterol Sulfate 3 Ml Ampul.Neb) 1 ampul IH Q6HRT STEPHANE Last Admin: 05/26/21 09:10 Dose: 1 ampul Documented by: Dextrose (Dextrose 50% In Water (25gm) 50 Ml Syringe) 25 ml IV Q30MIN PRN; Protocol PRN Reason: Hypoglycemia Hydralazine HCl (Hydralazine 20 Mg/1 Ml Inj) 10 mg IV Q6H PRN PRN Reason: Blood Pressure Hydromorphone HCl (Hydromorphone 1 Mg/1 Ml Inj) 0.5 mg IV Q3H PRN PRN Reason: Pain , Severe (7-10) NORepinephrine/NS 8 MG-250 ML (Norepinephrine/Ns 8 Mg-250 Ml (Double Conc)) 8 mg in 250 mls @ 3.75 mls/hr IV TITRATE STEPHANE; Protocol Last Admin: 05/26/21 10:05 Dose: 30 mcg/min, 56.25 mls/hr Documented by: Dextrose/Sodium Chloride (D5ns) 1,000 mls @ 120 mls/hr IV DIRECT STEPHANE Pantoprazole Sodium 80 mg/ (Sodium Chloride) 100 mls @ 10 mls/hr IV DIRECT STEPHANE Azithromycin (Zithromax/Ns) 500 mg in 250 mls @ 250 mls/hr IV Q24H STEPHANE Cefepime HCl (Cefepime/Ns 1 Gm/100 Ml) 1 gm in 100 mls @ 200 mls/hr IV Q12H STEPHANE; Protocol Last Admin: 05/26/21 10:17 Dose: 200 mls/hr Documented by: Vancomycin HCl 1,500 mg/ (Sodium Chloride) 530 mls @ 333.333 mls/hr IV Q24H STEPHANE Sodium Bicarbonate 150 meq/ (Dextrose) 1,150 mls @ 125 mls/hr IV DIRECT STEPHANE Last Admin: 05/26/21 07:00 Dose: 125 mls/hr Documented by: Vasopressin 20 unit/ Sodium (Chloride) 101 mls @ 9.09 mls/hr IV TITR STEPHANE; Protocol Last Admin: 05/26/21 08:30 Dose: 0.03 units/min, 9.09 mls/hr Documented by: Epinephrine 16 mg/ Sodium (Chloride) 250 mls @ 1.875 mls/hr IV TITR STEPHANE; Protocol Last Admin: 05/26/21 08:45 Dose: 2 mcg/min, 1.875 mls/hr Documented by: Sodium Chloride (Nacl 0.9% 500 Ml) 500 mls @ 1 mls/hr IV DIRECT PRN PRN Reason: ARTERIAL LINE FLUSH Last Admin: 05/26/21 10:18 Dose: 1 mls/hr Documented by: Sodium Chloride (Nacl 0.9% 1000 Ml) 1,000 mls @ 999 mls/hr IV DIRECT STEPHANE Last Admin: 05/26/21 09:29 Dose: 999 mls/hr Documented by: Phenylephrine HCl 100 mg/ (Sodium Chloride) 100 mls @ 3 mls/hr IV TITR STEPHANE; Protocol Ondansetron HCl (Ondansetron 4 Mg/2 Ml Inj) 4 mg IV Q8H PRN PRN Reason: Nausea And Vomiting Sodium Bicarbonate (Sodium Bicarb 8.4% 50 Meq/50 Ml Syringe) 50 meq IV ONCE STEPHANE Stop: 05/27/21 08:01 Last Admin: 05/26/21 09:23 Dose: 50 meq Documented by: Sodium Chloride (Sodium Chloride 0.9% 10 Ml Flush Syringe) 10 ml IV BID STEPHANE Sodium Chloride (Sodium Chloride 0.9% 10 Ml Flush Syringe) 10 ml IV PRN PRN PRN Reason: LINE FLUSH Review of Systems ROS unobtainable: due to endotracheal tube, due to mental status Physical Examination Vital Signs Temp Pulse Resp BP Pulse Ox 95.6 F L 117 H 23 92/36 91 05/25/21 18:03 05/25/21 18:03 05/25/21 18:03 05/25/21 18:03 05/25/21 18:03 General appearance: other (intubated) HEENT: Positive: Mucus Membranes Dry Neck: Positive: trachea midline Cardiac: Positive: Regular Rhythm, Tachycardia Lungs: Positive: Ventilated Respirations Neuro: Positive: Other (unable to assess. Patient intubated and sedated) Abdomen: Positive: Soft Skin: Negative: Rash, Suspicious Lesions, Ulceration Extremities: Present: upper extr. pulses, edema Results 05/26/21 09:11 05/26/21 09:11 Cardiac Enzymes 05/25/21 05/26/21 05/26/21 Range/Units 18:53 03:24 09:11 AST 62 H 1587 H 4071 H (5-40) units/L Lactate Dehydrogenase 191 H (91-180) units/L Coagulation 11/04/21 11/05/21 11/05/21 Range/Units 23:35 03:24 07:19 PT 19.8 H 27.0 H (12.2-14.9) Sec. INR 1.52 H 2.27 H (0.87-1.13) APTT 39.1 H 152.2 H* 63.6 H* (24.2-36.6) Sec. CBC 05/25/21 05/25/21 05/26/21 Range/Units 18:53 23:35 03:24 WBC 25.7 H 41.3 H* (4.5-11.0) K/mm3 RBC 2.77 L 1.76 L (3.65-5.03) M/mm3 Hgb 7.9 L 6.6 L 5.0 L* (11.8-15.2) gm/dl Hct 26.2 L 20.7 L 16.7 L* (35.5-45.6) % Plt Count 321 253 203 (140-440) K/mm3 Lymph # (Auto) [employer] Manager [place] # (Auto) [employer] Manager Eos # (Auto) [employer] Manager Baso # (Auto) [employer] Manager 05/26/21 Range/Units 09:11 WBC 29.1 H (4.5-11.0) K/mm3 RBC 2.84 L (3.65-5.03) M/mm3 Hgb 7.8 L (11.8-15.2) gm/dl Hct 25.8 L D (35.5-45.6) % Plt Count 193 (140-440) K/mm3 Lymph # (Auto) [place] # (Auto) Eos # (Auto) Baso # (Auto) Comprehensive Metabolic Panel 05/25/21 05/26/21 05/26/21 Range/Units 18:53 03:24 09:11 Sodium 138 141 149 H D (137-145) mmol/L Potassium 4.4 6.1 H* D 4.8 D (3.6-5.0) mmol/L Chloride 98.6 101.5 107.6 H (98-107) mmol/L Carbon Dioxide 15 L 8 L* D 11 L (22-30) mmol/L BUN 46 H 48 H 51 H (9-20) mg/dL Creatinine 1.9 H 2.6 H 2.5 H (0.8-1.3) mg/dL Glucose 187 H 478 H 150 H (75-100) mg/dL Calcium 8.7 8.2 L 7.0 L (8.4-10.2) mg/dL AST 62 H 1587 H 4071 H (5-40) units/L ALT 57 H 1311 H 2728 H (7-56) units/L Alkaline Phosphatase 77 64 93 (35-129) units/L Total Protein 6.0 L 3.2 L D 3.2 L (6.3-8.2) g/dL Albumin 2.8 L 1.4 L 1.5 L (3.9-5) g/dL - Imaging and Cardiology Echo: pending EKG: pending EKG interpretations - Telemetry EKG Rhythm: Atrial Fibrillation - EKG Supraventricular dysrhythmia: atrial fibrillation Assessment and Plan Patient is a 70-year-old male with a past medical history of hypertension who is brought to the ED for complaint of weakness and near syncope x1 day who coded twice. EKG shows afib w/ RVR 124. No acute ischemic changes. Troponins neg x1 Echo pending Telemetry reviewed: Patient currently afib w/ RVR 123 Patient currently intubated and requiring multiple pressors. Continue supportive care No anticoagulation due to anemia and GI bleed Prognosis very poor Patient seen in conjunction with Dr. Koroma who agrees with this plan of care. Will continue to follow - Patient Problems (1) Altered mental status Current Visit: Yes Status: Acute (2) Shortness of breath Current Visit: Yes Status: Acute (3) Suspected COVID-19 virus infection Current Visit: Yes Status: Acute (4) Tachycardia Current Visit: Yes Status: Acute (5) Sepsis Current Visit: Yes Status: Acute (6) Hypothermia Current Visit: Yes Status: Acute (7) Acute metabolic encephalopathy Current Visit: Yes Status: Acute (8) Hypertension Current Visit: Yes Status: Acute (9) Elevated d-dimer Current Visit: Yes Status: Acute (10) Renal insufficiency Current Visit: Yes Status: Acute (11) GI bleed Current Visit: Yes Status: Acute (12) Cardiac arrest Current Visit: Yes Status: Acute (13) Afib Current Visit: Yes Status: Acute
--- NOTE | 2021-05-26 11:20 | Consultation ---
History of Present Illness - History of Present Illness Thank you for the consultation Patient was evaluated today My assessment and plan are as follows Renal failure severe in a patient who has been admitted with sepsis-like picture with profound hypotension, severe leukocytosis and anemia metabolic acidosis severe lactic acidosis: His prognosis appears to be very poor currently not suitable for renal placement therapy due to profound hypotension continue with supportive care optimize hemodynamics hemodialysis can be considered Patient has been CODE BLUE 2, hemoglobin dropped, he did receive packed red blood cell transfusion and still continuing to do poorly Due to hemodynamic instability he will be at risk for compromise, of his hemodynamics and remotely risk of is also high will reach out to the family to discuss about the renal care plan #Severe lactic acidosis resulting from sepsis likely elevated due to reperfusion continue to follow serial lactic level #Hypocalcemia continue to monitor serial ionized calcium and replace as needed #Severe sepsis with anemia: Etiology being established being ruled out for coronavirus 19 infection #High mortality risk due to multiorgan failure-like picture profound sepsis hypotension and hemodynamic instability, continue with supportive care hemodialysis when more stable continue to monitor intake and output supportive care for now avoid nephrotoxic medication continue to abstain from ARB which he was taking the outpatient setting Author: Donald Terrell M.D. [facility] [address] [place] [address] Tel; [phone] History of present illness 70-year-old male who has been admitted here with fatigue, weakness and near syncopal spell, patient was feeling lightheaded has history of very poor by mouth intake for last 3-4 days, respiration was labored, in the ER noted to have a white cell count of 25.7 hemoglobin 7.9 BUN was 46 creatinine was 1.9 prompting this consultation. Bicarb was also noted to be 15 which was low, patient is currently being treated for presumed sepsis, with Covid PUI Was taking valsartan the outpatient setting which has been placed on hold As of today his white cell count which peaked at 41.3 has come down to 29.1 hemoglobin is 7.8 which was 5.0 yesterday His lactic acid which was 12 yesterday is currently at 21, his creatinine is 2.5 bicarbonate is 11 sodium 149 creatinine was 1.9 yesterday phosphorus is 7.3 Patient is profoundly hypotensive with blood pressure 76/43 Past medical history: Current allergies: Reviewed from the current chart Social history: Reviewed from the current chart Family history: Reviewed from the current chart Review of system: Positive for All other review of systems negative Physical examination Vitals: Reviewed General: No acute distress HEENT: Oral mucosa moist no pallor or icterus Neck: Supple without any JVD thyromegaly or nodular mass Chest: Clear to auscultation Heart: Regular rate and rhythm S1-S2 heard no S3-S4 Abdomen: Soft nontender, bowel sounds present no renal bruit no suprapubic masses no CVA tenderness noted Extremity: Minimal edema dry skin no peripheral cyanosis Endocrine: Thyroid not enlarged Psychiatric: No agitation and aggression noted Musculoskeletal: No joint effusion noted Labs and x-rays: Reviewed from this admission Past History Past Medical History: hypertension Past Surgical History: Other (Unknown) Social history: other (Unknown) Family history: other (Unknown) Medications and Allergies Allergies Allergy/AdvReac Type Severity Reaction Status Date / Time No Known Allergies Allergy Verified 05/25/21 21:01 Home Medications Medication Instructions Recorded Confirmed Last Taken Type Amlodipine Besylate/Valsartan 1 each PO 05/25/21 05/25/21 08:00 History [Amlodipine-Valsartan 10-160 mg] Amoxicillin/K Clav Tab [Augmentin 1 each PO Q12HR 05/25/21 05/25/21 Unknown History 500 MG TAB] Active Meds: Active Medications Acetaminophen (Acetaminophen 325 Mg Tab) 650 mg PO Q4H PRN PRN Reason: Pain MILD(1-3)/Fever >100.5/MONSON Albuterol (Albuterol 2.5 Mg/3 Ml Nebu) 2.5 mg IH Q4HRT PRN PRN Reason: Shortness Of Breath Albuterol/Ipratropium (Ipratropium/Albuterol Sulfate 3 Ml Ampul.Neb) 1 ampul IH Q6HRT STEPHANE Last Admin: 05/26/21 09:10 Dose: 1 ampul Documented by: Dextrose (Dextrose 50% In Water (25gm) 50 Ml Syringe) 25 ml IV Q30MIN PRN; P rotocol PRN Reason: Hypoglycemia Hydralazine HCl (Hydralazine 20 Mg/1 Ml Inj) 10 mg IV Q6H PRN PRN Reason: Blood Pressure Hydromorphone HCl (Hydromorphone 1 Mg/1 Ml Inj) 0.5 mg IV Q3H PRN PRN Reason: Pain , Severe (7-10) NORepinephrine/NS 8 MG-250 ML (Norepinephrine/Ns 8 Mg-250 Ml (Double Conc)) 8 mg in 250 mls @ 3.75 mls/hr IV TITRATE STEPHANE; Protocol Last Admin: 05/26/21 10:05 Dose: 30 mcg/min, 56.25 mls/hr Documented by: Dextrose/Sodium Chloride (D5ns) 1,000 mls @ 120 mls/hr IV DIRECT STEPHANE Pantoprazole Sodium 80 mg/ (Sodium Chloride) 100 mls @ 10 mls/hr IV DIRECT STEPHANE Azithromycin (Zithromax/Ns) 500 mg in 250 mls @ 250 mls/hr IV Q24H STEPHANE Cefepime HCl (Cefepime/Ns 1 Gm/100 Ml) 1 gm in 100 mls @ 200 mls/hr IV Q12H STEPHANE; Protocol Last Admin: 05/26/21 10:17 Dose: 200 mls/hr Documented by: Vancomycin HCl 1,500 mg/ (Sodium Chloride) 530 mls @ 333.333 mls/hr IV Q24H STEPHANE Sodium Bicarbonate 150 meq/ (Dextrose) 1,150 mls @ 125 mls/hr IV DIRECT STEPHANE Last Admin: 05/26/21 07:00 Dose: 125 mls/hr Documented by: Vasopressin 20 unit/ Sodium (Chloride) 101 mls @ 9.09 mls/hr IV TITR STEPHANE; Protocol Last Admin: 05/26/21 08:30 Dose: 0.03 units/min, 9.09 mls/hr Documented by: Epinephrine 16 mg/ Sodium (Chloride) 250 mls @ 1.875 mls/hr IV TITR STEPHAEN; Protocol Last Admin: 05/26/21 08:45 Dose: 2 mcg/min, 1.875 mls/hr Documented by: Sodium Chloride (Nacl 0.9% 500 Ml) 500 mls @ 1 mls/hr IV DIRECT PRN PRN Reason: ARTERIAL LINE FLUSH Last Admin: 05/26/21 10:18 Dose: 1 mls/hr Documented by: Sodium Chloride (Nacl 0.9% 1000 Ml) 1,000 mls @ 999 mls/hr IV DIRECT STEPHANE Last Admin: 05/26/21 09:29 Dose: 999 mls/hr Documented by: Phenylephrine HCl 100 mg/ (Sodium Chloride) 100 mls @ 3 mls/hr IV TITR STEPHANE; Protocol Ondansetron HCl (Ondansetron 4 Mg/2 Ml Inj) 4 mg IV Q8H PRN PRN Reason: Nausea And Vomiting Sodium Bicarbonate (Sodium Bicarb 8.4% 50 Meq/50 Ml Syringe) 50 meq IV ONCE STEPHANE Stop: 05/27/21 08:01 Last Admin: 05/26/21 09:23 Dose: 50 meq Documented by: Sodium Chloride (Sodium Chloride 0.9% 10 Ml Flush Syringe) 10 ml IV BID STEPHANE Sodium Chloride (Sodium Chloride 0.9% 10 Ml Flush Syringe) 10 ml IV PRN PRN PRN Reason: LINE FLUSH Exam - Vital Signs Vital signs: Vital Signs Temp Pulse Resp BP Pulse Ox 95.6 F L 117 H 23 92/36 91 05/25/21 18:03 05/25/21 18:03 05/25/21 18:03 05/25/21 18:03 05/25/21 18:03 Results - Lab Results 05/26/21 09:11 05/26/21 09:11 Most recent lab results ABG pH 7.048 (7.320-7.450) L 05/26/21 07:34 ABG O2 Saturation 91.1 (0-100) 05/26/21 07:34 Calcium 7.0 mg/dL (8.4-10.2) L 05/26/21 09:11 Phosphorus 7.30 mg/dL (2.5-4.5) H 05/26/21 09:11 Magnesium 2.30 mg/dL (1.7-2.3) 05/26/21 09:11
--- NOTE | 2021-05-26 11:45 | Consultation ---
History of Present Illness Consult date: 05/26/21 Reason for consult: other (Sepsis, now cardiac arrest) History of present illness: 70 y/o male who originally came in for fatigue, several electrolyte abnormalities, subsequently coded in the ED and is now intubated, unresponsive on multiple vasopressors as well as bicarb. Patient also had a large drop in hemoglobin after a large bloody bowel movement in the ED. He is still hypotensive on multiple pressors and unresponsive. He is also in DIC. Past History Past Medical History: hypertension Past Surgical History: Other (Unknown) Social history: other (Unknown) Family history: other (Unknown) Medications and Allergies Allergies Allergy/AdvReac Type Severity Reaction Status Date / Time No Known Allergies Allergy Verified 05/25/21 21:01 Home Medications Medication Instructions Recorded Confirmed Last Taken Type Amlodipine Besylate/Valsartan 1 each PO 05/25/21 05/25/21 08:00 History [Amlodipine-Valsartan 10-160 mg] Amoxicillin/K Clav Tab [Augmentin 1 each PO Q12HR 05/25/21 05/25/21 Unknown History 500 MG TAB] Active Meds: Active Medications Acetaminophen (Acetaminophen 325 Mg Tab) 650 mg PO Q4H PRN PRN Reason: Pain MILD(1-3)/Fever >100.5/MONSON Albuterol (Albuterol 2.5 Mg/3 Ml Nebu) 2.5 mg IH Q4HRT PRN PRN Reason: Shortness Of Breath Albuterol/Ipratropium (Ipratropium/Albuterol Sulfate 3 Ml Ampul.Neb) 1 ampul IH Q6HRT STEPHANE Last Admin: 05/26/21 09:10 Dose: 1 ampul Documented by: Dextrose (Dextrose 50% In Water (25gm) 50 Ml Syringe) 25 ml IV Q30MIN PRN; Protocol PRN Reason: Hypoglycemia Hydralazine HCl (Hydralazine 20 Mg/1 Ml Inj) 10 mg IV Q6H PRN PRN Reason: Blood Pressure Hydromorphone HCl (Hydromorphone 1 Mg/1 Ml Inj) 0.5 mg IV Q3H PRN PRN Reason: Pain , Severe (7-10) NORepinephrine/NS 8 MG-250 ML (Norepinephrine/Ns 8 Mg-250 Ml (Double Conc)) 8 mg in 250 mls @ 3.75 mls/hr IV TITRATE STEPHANE; Protocol Last Admin: 05/26/21 10:05 Dose: 30 mcg/min, 56.25 mls/hr Documented by: Dextrose/Sodium Chloride (D5ns) 1,000 mls @ 120 mls/hr IV DIRECT STEPHANE Pantoprazole Sodium 80 mg/ (Sodium Chloride) 100 mls @ 10 mls/hr IV DIRECT STEPHANE Azithromycin (Zithromax/Ns) 500 mg in 250 mls @ 250 mls/hr IV Q24H STEPHANE Cefepime HCl (Cefepime/Ns 1 Gm/100 Ml) 1 gm in 100 mls @ 200 mls/hr IV Q12H STEPHANE; Protocol Last Admin: 05/26/21 10:17 Dose: 200 mls/hr Documented by: Vancomycin HCl 1,500 mg/ (Sodium Chloride) 530 mls @ 333.333 mls/hr IV Q24H STEPHANE Sodium Bicarbonate 150 meq/ (Dextrose) 1,150 mls @ 125 mls/hr IV DIRECT STEPHANE Last Admin: 05/26/21 07:00 Dose: 125 mls/hr Documented by: Vasopressin 20 unit/ Sodium (Chloride) 101 mls @ 9.09 mls/hr IV TITR STEPHANE; P rotocol Last Admin: 05/26/21 08:30 Dose: 0.03 units/min, 9.09 mls/hr Documented by: Epinephrine 16 mg/ Sodium (Chloride) 250 mls @ 1.875 mls/hr IV TITR STEPHANE; Protocol Last Admin: 05/26/21 08:45 Dose: 2 mcg/min, 1.875 mls/hr Documented by: Sodium Chloride (Nacl 0.9% 500 Ml) 500 mls @ 1 mls/hr IV DIRECT PRN PRN Reason: ARTERIAL LINE FLUSH Last Admin: 05/26/21 10:18 Dose: 1 mls/hr Documented by: Sodium Chloride (Nacl 0.9% 1000 Ml) 1,000 mls @ 999 mls/hr IV DIRECT STEPHANE Last Admin: 05/26/21 09:29 Dose: 999 mls/hr Documented by: Phenylephrine HCl 100 mg/ (Sodium Chloride) 100 mls @ 3 mls/hr IV TITR STEPHANE; Protocol Ondansetron HCl (Ondansetron 4 Mg/2 Ml Inj) 4 mg IV Q8H PRN PRN Reason: Nausea And Vomiting Sodium Bicarbonate (Sodium Bicarb 8.4% 50 Meq/50 Ml Syringe) 50 meq IV ONCE STEPHANE Stop: 05/27/21 08:01 Last Admin: 05/26/21 09:23 Dose: 50 meq Documented by: Sodium Chloride (Sodium Chloride 0.9% 10 Ml Flush Syringe) 10 ml IV BID STEPHANE Sodium Chloride (Sodium Chloride 0.9% 10 Ml Flush Syringe) 10 ml IV PRN PRN PRN Reason: LINE FLUSH Review of Systems ROS unobtainable: due to endotracheal tube, due to mental status Physical Examination Vital signs: Vital Signs Temp Pulse Resp BP Pulse Ox 95.6 F L 117 H 23 92/36 91 05/25/21 18:03 05/25/21 18:03 05/25/21 18:03 05/25/21 18:03 05/25/21 18:03 Results - Laboratory Findings CBC and BMP: 05/26/21 09:11 05/26/21 09:11 ABG ABG pH 7.048 (7.320-7.450) L 05/26/21 07:34 POC ABG pCO2 29.7 mmHg (32.0-48.0) L 05/26/21 07:34 POC ABG pO2 79.9 mmHg (83-108) L 05/26/21 07:34 POC ABG HCO3 8.0 05/26/21 07:34 ABG O2 Saturation 91.1 (0-100) 05/26/21 07:34 PT/INR, D-dimer PT 27.0 Sec. (12.2-14.9) H 05/26/21 07:19 INR 2.27 (0.87-1.13) H 05/26/21 07:19 D-Dimer 8612.82 ng/mlDDU (0-234) H 05/26/21 07:19 Abnormal lab findings: Abnormal Labs 05/25/21 05/25/21 05/25/21 18:53 18:53 18:53 WBC 25.7 H RBC 2.77 L Hgb 7.9 L Hct 26.2 L MCV 95 H MCHC 30 L Seg Neuts % (Manual) Lymphocytes % (Manual) Nucleated RBC % Seg Neutrophils # Man 17.0 H Lymphocytes # (Manual) Monocytes # (Manual) 1.8 H Basophils # (Manual) 0.3 H PT INR APTT Fibrinogen D-Dimer Heparin Anti-Xa Level ABG pH POC ABG pCO2 POC ABG pO2 ABG Hemoglobin ABG Oxyhemoglobin ABG Potassium ABG Chloride ABG Glucose Sodium Potassium Chloride Carbon Dioxide 15 L BUN 46 H Creatinine 1.9 H Glucose 187 H POC Glucose Lactic Acid 13.20 H* Calcium Phosphorus Ferritin AST 62 H ALT 57 H Lactate Dehydrogenase 191 H Total Protein 6.0 L Albumin 2.8 L Arterial Blood Glucose Arterial Blood Ionized Calcium Crossmatch 05/25/21 05/25/21 05/25/21 18:53 18:53 21:09 WBC RBC Hgb Hct MCV MCHC Seg Neuts % (Manual) Lymphocytes % (Manual) Nucleated RBC % Seg Neutrophils # Man Lymphocytes # (Manual) Monocytes # (Manual) Basophils # (Manual) PT INR APTT Fibrinogen D-Dimer 5197.40 H Heparin Anti-Xa Level ABG pH POC ABG pCO2 POC ABG pO2 ABG Hemoglobin ABG Oxyhemoglobin ABG Potassium ABG Chloride ABG Glucose Sodium Potassium Chloride Carbon Dioxide BUN Creatinine Glucose POC Glucose Lactic Acid 12.60 H* Calcium Phosphorus Ferritin 521.7 H AST ALT Lactate Dehydrogenase Total Protein Albumin Arterial Blood Glucose Arterial Blood Ionized Calcium Crossmatch 05/25/21 05/25/21 05/25/21 23:35 23:35 23:35 WBC RBC Hgb 6.6 L Hct 20.7 L MCV MCHC Seg Neuts % (Manual) Lymphocytes % (Manual) Nucleated RBC % Seg Neutrophils # Man Lymphocytes # (Manual) Monocytes # (Manual) Basophils # (Manual) PT 19.8 H INR 1.52 H APTT 39.1 H Fibrinogen D-Dimer Heparin Anti-Xa Level ABG pH POC ABG pCO2 POC ABG pO2 ABG Hemoglobin ABG Oxyhemoglobin ABG Potassium ABG Chloride ABG Glucose Sodium Potassium Chloride Carbon Dioxide BUN Creatinine Glucose POC Glucose Lactic Acid 12.00 H* Calcium Phosphorus Ferritin AST ALT Lactate Dehydrogenase Total Protein Albumin Arterial Blood Glucose Arterial Blood Ionized Calcium Crossmatch 05/26/21 05/26/21 05/26/21 03:07 03:20 03:24 WBC 41.3 H* RBC 1.76 L Hgb 5.0 L* Hct 16.7 L* MCV 95 H MCHC 30 L Seg Neuts % (Manual) 80.5 H Lymphocytes % (Manual) 5.5 L Nucleated RBC % Seg Neutrophils # Man 33.2 H Lymphocytes # (Manual) Monocytes # (Manual) 1.7 H Basophils # (Manual) 0.4 H PT INR APTT Fibrinogen D-Dimer Heparin Anti-Xa Level ABG pH POC ABG pCO2 POC ABG pO2 ABG Hemoglobin ABG Oxyhemoglobin ABG Potassium ABG Chloride ABG Glucose Sodium Potassium Chloride Carbon Dioxide BUN Creatinine Glucose POC Glucose < 10 L Lactic Acid Calcium Phosphorus Ferritin AST ALT Lactate Dehydrogenase Total Protein Albumin Arterial Blood Glucose Arterial Blood Ionized Calcium Crossmatch See Detail 05/26/21 05/26/21 05/26/21 03:24 03:24 03:42 WBC RBC Hgb Hct MCV MCHC Seg Neuts % (Manual) Lymphocytes % (Manual) Nucleated RBC % Seg Neutrophils # Man Lymphocytes # (Manual) Monocytes # (Manual) Basophils # (Manual) PT INR APTT 152.2 H* Fibrinogen D-Dimer Heparin Anti-Xa Level ABG pH POC ABG pCO2 POC ABG pO2 ABG Hemoglobin ABG Oxyhemoglobin ABG Potassium ABG Chloride ABG Glucose Sodium Potassium 6.1 H* D Chloride Carbon Dioxide 8 L* D BUN 48 H Creatinine 2.6 H Glucose 478 H POC Glucose Lactic Acid 21.40 H* Calcium 8.2 L Phosphorus Ferritin AST 1587 H ALT 1311 H Lactate Dehydrogenase Total Protein 3.2 L D Albumin 1.4 L Arterial Blood Glucose Arterial Blood Ionized Calcium Crossmatch 05/26/21 05/26/21 05/26/21 03:46 05:27 05:56 WBC RBC Hgb Hct MCV MCHC Seg Neuts % (Manual) Lymphocytes % (Manual) Nucleated RBC % Seg Neutrophils # Man Lymphocytes # (Manual) Monocytes # (Manual) Basophils # (Manual) PT INR APTT Fibrinogen D-Dimer Heparin Anti-Xa Level ABG pH 7.062 L POC ABG pCO2 25.6 L POC ABG pO2 148.1 H ABG Hemoglobin 7.5 L ABG Oxyhemoglobin ABG Potassium 6.5 H ABG Chloride 110.0 H ABG Glucose 134 H Sodium Potassium Chloride Carbon Dioxide BUN Creatinine Glucose POC Glucose 167 H 128 H Lactic Acid Calcium Phosphorus Ferritin AST ALT Lactate Dehydrogenase Total Protein Albumin Arterial Blood Glucose 134 H Arterial Blood Ionized Calcium 4.4 L Crossmatch 05/26/21 05/26/21 05/26/21 06:38 07:12 07:19 WBC RBC Hgb Hct MCV MCHC Seg Neuts % (Manual) Lymphocytes % (Manual) Nucleated RBC % Seg Neutrophils # Man Lymphocytes # (Manual) Monocytes # (Manual) Basophils # (Manual) PT 27.0 H INR 2.27 H APTT 63.6 H* Fibrinogen 108 L* D-Dimer 8612.82 H Heparin Anti-Xa Level 0.10 L ABG pH POC ABG pCO2 POC ABG pO2 ABG Hemoglobin ABG Oxyhemoglobin ABG Potassium ABG Chloride ABG Glucose Sodium Potassium Chloride Carbon Dioxide BUN Creatinine Glucose POC Glucose 158 H 124 H Lactic Acid Calcium Phosphorus Ferritin AST ALT Lactate Dehydrogenase Total Protein Albumin Arterial Blood Glucose Arterial Blood Ionized Calcium Crossmatch 05/26/21 05/26/21 05/26/21 07:34 09:11 09:11 WBC 29.1 H RBC 2.84 L Hgb 7.8 L Hct 25.8 L D MCV MCHC 30 L Seg Neuts % (Manual) Lymphocytes % (Manual) 3.0 L Nucleated RBC % 3.0 H Seg Neutrophils # Man 17.8 H Lymphocytes # (Manual) 0.9 L Monocytes # (Manual) Basophils # (Manual) PT INR APTT Fibrinogen D-Dimer Heparin Anti-Xa Level ABG pH 7.048 L POC ABG pCO2 29.7 L POC ABG pO2 79.9 L ABG Hemoglobin 7.9 L ABG Oxyhemoglobin 89.6 L ABG Potassium 5.2 H ABG Chloride 109.0 H ABG Glucose 144 H Sodium 149 H D Potassium Chloride 107.6 H Carbon Dioxide 11 L BUN 51 H Creatinine 2.5 H Glucose 150 H POC Glucose Lactic Acid Calcium 7.0 L Phosphorus 7.30 H Ferritin AST 4071 H ALT 2728 H Lactate Dehydrogenase Total Protein 3.2 L Albumin 1.5 L Arterial Blood Glucose 144 H Arterial Blood Ionized Calcium Crossmatch 05/26/21 05/26/21 09:11 10:32 WBC RBC Hgb Hct MCV MCHC Seg Neuts % (Manual) Lymphocytes % (Manual) Nucleated RBC % Seg Neutrophils # Man Lymphocytes # (Manual) Monocytes # (Manual) Basophils # (Manual) PT INR APTT Fibrinogen D-Dimer Heparin Anti-Xa Level ABG pH POC ABG pCO2 POC ABG pO2 ABG Hemoglobin ABG Oxyhemoglobin ABG Potassium ABG Chloride ABG Glucose Sodium Potassium Chloride Carbon Dioxide BUN Creatinine Glucose POC Glucose Lactic Acid 21.80 H* 21.80 H* Calcium Phosphorus Ferritin AST ALT Lactate Dehydrogenase Total Protein Albumin Arterial Blood Glucose Arterial Blood Ionized Calcium Crossmatch - Diagnostic Findings Chest x-ray: image reviewed Assessment and Plan 70 y/o male now with multiple cardiac arrest, multiple system organ failure (neuro, cardia, pulmonary, renal) 1. Very very poor prognosis given down time and organ failure. Family requests patient remain full code. Will continue supportive measures but patient with very high risk of repeat cardiac arrest and inability to achieve ROSC CCT 31 minutes.
[2021-05-26] MEDS ORDERED: SODIUM CHLORIDE 0.9% 500 ML 500 ML IV SCH (12:08)
--- NOTE | 2021-05-26 12:12 | Post Operative Note ---
Pre-op diagnosis: GI Bleed Post-op diagnosis: other (DU) Findings: 1. Large (3/4 circumferential, 3cm) cratered duodenal bulb ulcer with a large central visible vessel 2. Antrum/fundus relatively unremarkable. 3. No varices Procedure: EGD Anesthesia: MAC Surgeon: SHABBIR NICOLE Estimated blood loss: none Pathology: none Specimen disposition: other (N/A) Condition: critical Disposition: ICU (Recs: 1. Continue protonix/volume resuscitation. 2. Spoke to IR about embolization (needs stabilization). 3. Continue aggressive fluid resuscitaion/transfusion/FFP. 4. Avoid all NSAID/blood thinners. 5. OK to keep NG in for meds/suction (tip is in stomach/not duodenum).)
[2021-05-26] MEDS: SODIUM POLYSTYRENE 15 GM/60 ML ORAL LIQD PO SCH ×2 (12:16→12:25)
--- NOTE | 2021-05-26 12:22 | Event Note ---
Date: 05/26/21 Patient with a history of presentation to ER with massive upper GI bleed from duodenal ulcer. Not currently bleeding however, sequela of patient's presenting symptoms resulted in multiple codes, nonresponsiveness and multiple pressors. Patient is currently in multiorgan failure including liver kidneys with lactic acid of greater than 20. At this point in time, the patient is far too unstable to attempt any interventional procedure additionally, by report the patient is in DIC.
--- NOTE | 2021-05-26 13:04 | Operative Report ---
DATE OF SURGERY: 05/26/2021 PROCEDURE PERFORMED: Esophagogastroduodenoscopy. PREOPERATIVE DIAGNOSIS: Gastrointestinal bleed. POSTOPERATIVE DIAGNOSIS: Duodenal ulcer. ENDOSCOPIST: Derik Shepard MD INSTRUMENT: The Olympus video endoscope. MEDICATIONS: None; the patient was on the ventilator in the intensive care unit and no sedative medications were given. COMPLICATIONS: None apparent. ESTIMATED BLOOD LOSS: None due to the procedure. SPECIMENS: None. IMPLANTS: None. ASSISTANTS: None. CONDITION AT COMPLETION: Critical, but unchanged. TECHNIQUE: The patient's daughter provided informed consent over the telephone; the patient is intubated and unresponsive and was unable to provide consent. PROCEDURE NOTE: After consent was obtained, the patient was placed in the supine position. The above sedative was placed in the supine position. The endoscope was advanced from the mouth to the third portion of the duodenum under direct visualization. At that point, the bowel was insufflated and the endoscope was slowly withdrawn. FINDINGS: 1. Large, 3/4 circumferential, 3 cm cratered duodenal bulb ulcer with a large central visible vessel. A. Given the size of the vessel and the ulcer, this would not be amenable to endoscopic treatment. 2. The antrum, body, and fundus of the stomach were relatively unremarkable. 3. No evidence of esophageal varices. RECOMMENDATIONS: 1. Continue Protonix and volume resuscitation. 2. I spoke to interventional radiology about embolization, but the patient needs stabilization. 3. Continue aggressive fluid resuscitation, transfusion, FFP. 4. Avoid all NSAIDs and blood thinners. 5. Okay to keep the nasogastric tube in for suctioning and meds as the tip was in the stomach and not the duodenum. TID: [id number] RECEIPT: [id number] ANA/LISA
--- NOTE | 2021-05-26 14:42 | Consultation ---
History of Present Illness - Reason for Consult Consult date: 05/26/21 - History of Present Illness 70-year-old male past medical history high blood pressure presented to hospital complaining of fatigue. This began the day of admission and was noted with presyncope. He has also had decreased oral intake for the past 3 days prior to admission. Family reported that he was unlabored respirations. He is on vaccinated needs COVID-19. He was to have a significant GI bleed from duodenal ulcer. he was intubated due to agonal breathing. He had CODE BLUE and was resuscitated. Low temperatures, elevated white count currently 29.1. Blood cultures no growth so far. Currently on cefepime azithromycin and vancomycin. Covid PCR: Pending. Currently has SHAINA on CKD. Imaging personally reviewed: Chest x-ray: Bilateral opacities in the lungs. Past History Past Medical History: hypertension Past Surgical History: Other (Unknown) Social history: other (Unknown) Family history: other (Unknown) Medications and Allergies Allergies Allergy/AdvReac Type Severity Reaction Status Date / Time No Known Allergies Allergy Verified 05/25/21 21:01 Home Medications Medication Instructions Recorded Confirmed Last Taken Type Amlodipine Besylate/Valsartan 1 each PO 05/25/21 05/25/21 08:00 History [Amlodipine-Valsartan 10-160 mg] Amoxicillin/K Clav Tab [Augmentin 1 each PO Q12HR 05/25/21 05/25/21 Unknown History 500 MG TAB] Active Meds: Active Medications Acetaminophen (Acetaminophen 325 Mg Tab) 650 mg PO Q4H PRN PRN Reason: Pain MILD(1-3)/Fever >100.5/MONSON Albuterol (Albuterol 2.5 Mg/3 Ml Nebu) 2.5 mg IH Q4HRT PRN PRN Reason: Shortness Of Breath Albuterol/Ipratropium (Ipratropium/Albuterol Sulfate 3 Ml Ampul.Neb) 1 ampul IH Q6HRT STEPHANE Last Admin: 05/26/21 09:10 Dose: 1 ampul Documented by: Dextrose (Dextrose 50% In Water (25gm) 50 Ml Syringe) 25 ml IV Q30MIN PRN; Protocol PRN Reason: Hypoglycemia Hydralazine HCl (Hydralazine 20 Mg/1 Ml Inj) 10 mg IV Q6H PRN PRN Reason: Blood Pressure Hydromorphone HCl (Hydromorphone 1 Mg/1 Ml Inj) 0.5 mg IV Q3H PRN PRN Reason: Pain , Severe (7-10) NORepinephrine/NS 8 MG-250 ML (Norepinephrine/Ns 8 Mg-250 Ml (Double Conc)) 8 mg in 250 mls @ 3.75 mls/hr IV TITRATE STEPHANE; Protocol Last Admin: 05/26/21 10:05 Dose: 30 mcg/min, 56.25 mls/hr Documented by: Pantoprazole Sodium 80 mg/ (Sodium Chloride) 100 mls @ 10 mls/hr IV DIRECT STEPHANE Last Admin: 05/26/21 13:09 Dose: 8 mg/hr, 10 mls/hr Documented by: Azithromycin (Zithromax/Ns) 500 mg in 250 mls @ 250 mls/hr IV Q24H STEPHANE Cefepime HCl (Cefepime/Ns 1 Gm/100 Ml) 1 gm in 100 mls @ 200 mls/hr IV Q12H STEPHANE; Protocol Last Infusion: 05/26/21 12:26 Dose: Infused Documented by: Vancomycin HCl 1,500 mg/ (Sodium Chloride) 530 mls @ 333.333 mls/hr IV Q24H STEPHANE Sodium Bicarbonate 150 meq/ (Dextrose) 1,150 mls @ 250 mls/hr IV DIRECT STEPHANE Last Infusion: 05/26/21 13:36 Dose: 250 mls/hr Documented by: Vasopressin 20 unit/ Sodium (Chloride) 101 mls @ 9.09 mls/hr IV TITR STEPHANE; Protocol Last Admin: 05/26/21 08:30 Dose: 0.03 units/min, 9.09 mls/hr Documented by: Epinephrine 16 mg/ Sodium (Chloride) 250 mls @ 1.875 mls/hr IV TITR STEPHANE; Protocol Last Titration: 05/26/21 10:45 Dose: 10 mcg/min, 9.375 mls/hr Documented by: Sodium Chloride (Nacl 0.9% 500 Ml) 500 mls @ 1 mls/hr IV DIRECT PRN PRN Reason: ARTERIAL LINE FLUSH Last Admin: 05/26/21 13:29 Dose: 1 mls/hr Documented by: Sodium Chloride (Nacl 0.9% 1000 Ml) 1,000 mls @ 999 mls/hr IV DIRECT STEPHANE Last Infusion: 05/26/21 12:15 Dose: Infused Documented by: Phenylephrine HCl 100 mg/ (Sodium Chloride) 100 mls @ 3 mls/hr IV TITR STEPHANE; Protocol Last Titration: 05/26/21 12:15 Dose: 400 mcg/min, 24 mls/hr Documented by: Sodium Chloride (Nacl 0.9% 500 Ml) 500 mls @ 0 mls/hr IV ONCE STEPHANE Lactated Ringer's (Lactated Ringers) 1,000 mls @ 999 mls/hr IV DIRECT STEPHANE Stop: 05/27/21 15:01 Ondansetron HCl (Ondansetron 4 Mg/2 Ml Inj) 4 mg IV Q8H PRN PRN Reason: Nausea And Vomiting Sodium Bicarbonate (Sodium Bicarb 8.4% 50 Meq/50 Ml Syringe) 50 meq IV ONCE STEPHANE Stop: 05/27/21 08:01 Last Admin: 05/26/21 09:23 Dose: 50 meq Documented by: Sodium Chloride (Sodium Chloride 0.9% 10 Ml Flush Syringe) 10 ml IV BID STEPHANE Last Admin: 05/26/21 10:00 Dose: 10 ml Documented by: Sodium Chloride (Sodium Chloride 0.9% 10 Ml Flush Syringe) 10 ml IV PRN PRN PRN Reason: LINE FLUSH Review of Systems ROS unobtainable: due to endotracheal tube Physical Examination - Physical Exam Narrative exam: Physical exam deferred to reduce risk of transmission of COVID-19. Please refer to primary team's note. - Constitutional Vitals: Vital Signs Temp Pulse Resp BP Pulse Ox 93.2 F L 124 H 35 H 76/43 97 05/26/21 06:18 05/26/21 13:51 05/26/21 13:51 05/26/21 08:00 05/26/21 13:51 Temperature -Last 24 Hours Temperature 93.2 F Temperature 98.5 F Temperature 98.5 F Temperature 95.6 F Results - Labs CBC & Chem 7: 05/26/21 09:11 05/26/21 09:11 Labs: Abnormal lab results 05/25/21 05/25/21 05/25/21 Range/Units 18:53 18:53 18:53 WBC 25.7 H (4.5-11.0) K/mm3 RBC 2.77 L (3.65-5.03) M/mm3 Hgb 7.9 L (11.8-15.2) gm/dl Hct 26.2 L (35.5-45.6) % MCV 95 H (84-94) fl MCHC 30 L (32-34) % Seg Neuts % (Manual) (40.0-70.0) % Lymphocytes % (Manual) (13.4-35.0) % Nucleated RBC % (0.0-0.9) % Seg Neutrophils # Man 17.0 H (1.8-7.7) K/mm3 Lymphocytes # (Manual) (1.2-5.4) K/mm3 Monocytes # (Manual) 1.8 H (0.0-0.8) K/mm3 Basophils # (Manual) 0.3 H (0.0-0.1) K/mm3 PT (12.2-14.9) Sec. INR (0.87-1.13) APTT (24.2-36.6) Sec. Fibrinogen (211-480) mg/dl D-Dimer (0-234) ng/mlDDU Heparin Anti-Xa Level (0.3-0.7) U.I./ml ABG pH (7.320-7.450) POC ABG pCO2 (32.0-48.0) mmHg POC ABG pO2 (83-108) mmHg ABG Hemoglobin (12.0-17.5) ABG Oxyhemoglobin (94-98) ABG Potassium (3.40-4.50) mmol/L ABG Chloride (98-107) mmol/L ABG Glucose (65-95) mg/dL Sodium (137-145) mmol/L Potassium (3.6-5.0) mmol/L Chloride (98-107) mmol/L Carbon Dioxide 15 L (22-30) mmol/L BUN 46 H (9-20) mg/dL Creatinine 1.9 H (0.8-1.3) mg/dL Glucose 187 H (75-100) mg/dL POC Glucose (70-105) mg/dL Lactic Acid 13.20 H* (0.7-2.0) mmol/L Calcium (8.4-10.2) mg/dL Phosphorus (2.5-4.5) mg/dL Ferritin (30.0-300.0) ng/mL AST 62 H (5-40) units/L ALT 57 H (7-56) units/L Lactate Dehydrogenase 191 H (91-180) units/L Total Protein 6.0 L (6.3-8.2) g/dL Albumin 2.8 L (3.9-5) g/dL Arterial Blood Glucose (65-95) mg/dL Arterial Blood Ionized Calcium (4.6-5.3) mg/dL Crossmatch 05/25/21 05/25/21 05/25/21 Range/Units 18:53 18:53 21:09 WBC (4.5-11.0) K/mm3 RBC (3.65-5.03) M/mm3 Hgb (11.8-15.2) gm/dl Hct (35.5-45.6) % MCV (84-94) fl MCHC (32-34) % Seg Neuts % (Manual) (40.0-70.0) % Lymphocytes % (Manual) (13.4-35.0) % Nucleated RBC % (0.0-0.9) % Seg Neutrophils # Man (1.8-7.7) K/mm3 Lymphocytes # (Manual) (1.2-5.4) K/mm3 Monocytes # (Manual) (0.0-0.8) K/mm3 Basophils # (Manual) (0.0-0.1) K/mm3 PT (12.2-14.9) Sec. INR (0.87-1.13) APTT (24.2-36.6) Sec. Fibrinogen (211-480) mg/dl D-Dimer 5197.40 H (0-234) ng/mlDDU Heparin Anti-Xa Level (0.3-0.7) U.I./ml ABG pH (7.320-7.450) POC ABG pCO2 (32.0-48.0) mmHg POC ABG pO2 (83-108) mmHg ABG Hemoglobin (12.0-17.5) ABG Oxyhemoglobin (94-98) ABG Potassium (3.40-4.50) mmol/L ABG Chloride (98-107) mmol/L ABG Glucose (65-95) mg/dL Sodium (137-145) mmol/L Potassium (3.6-5.0) mmol/L Chloride (98-107) mmol/L Carbon Dioxide (22-30) mmol/L BUN (9-20) mg/dL Creatinine (0.8-1.3) mg/dL Glucose (75-100) mg/dL POC Glucose (70-105) mg/dL Lactic Acid 12.60 H* (0.7-2.0) mmol/L Calcium (8.4-10.2) mg/dL Phosphorus (2.5-4.5) mg/dL Ferritin 521.7 H (30.0-300.0) ng/mL AST (5-40) units/L ALT (7-56) units/L Lactate Dehydrogenase (91-180) units/L Total Protein (6.3-8.2) g/dL Albumin (3.9-5) g/dL Arterial Blood Glucose (65-95) mg/dL Arterial Blood Ionized Calcium (4.6-5.3) mg/dL Crossmatch 05/25/21 05/25/21 05/25/21 Range/Units 23:35 23:35 23:35 WBC (4.5-11.0) K/mm3 RBC (3.65-5.03) M/mm3 Hgb 6.6 L (11.8-15.2) gm/dl Hct 20.7 L (35.5-45.6) % MCV (84-94) fl MCHC (32-34) % Seg Neuts % (Manual) (40.0-70.0) % Lymphocytes % (Manual) (13.4-35.0) % Nucleated RBC % (0.0-0.9) % Seg Neutrophils # Man (1.8-7.7) K/mm3 Lymphocytes # (Manual) (1.2-5.4) K/mm3 Monocytes # (Manual) (0.0-0.8) K/mm3 Basophils # (Manual) (0.0-0.1) K/mm3 PT 19.8 H (12.2-14.9) Sec. INR 1.52 H (0.87-1.13) APTT 39.1 H (24.2-36.6) Sec. Fibrinogen (211-480) mg/dl D-Dimer (0-234) ng/mlDDU Heparin Anti-Xa Level (0.3-0.7) U.I./ml ABG pH (7.320-7.450) POC ABG pCO2 (32.0-48.0) mmHg POC ABG pO2 (83-108) mmHg ABG Hemoglobin (12.0-17.5) ABG Oxyhemoglobin (94-98) ABG Potassium (3.40-4.50) mmol/L ABG Chloride (98-107) mmol/L ABG Glucose (65-95) mg/dL Sodium (137-145) mmol/L Potassium (3.6-5.0) mmol/L Chloride (98-107) mmol/L Carbon Dioxide (22-30) mmol/L BUN (9-20) mg/dL Creatinine (0.8-1.3) mg/dL Glucose (75-100) mg/dL POC Glucose (70-105) mg/dL Lactic Acid 12.00 H* (0.7-2.0) mmol/L Calcium (8.4-10.2) mg/dL Phosphorus (2.5-4.5) mg/dL Ferritin (30.0-300.0) ng/mL AST (5-40) units/L ALT (7-56) units/L Lactate Dehydrogenase (91-180) units/L Total Protein (6.3-8.2) g/dL Albumin (3.9-5) g/dL Arterial Blood Glucose (65-95) mg/dL Arterial Blood Ionized Calcium (4.6-5.3) mg/dL Crossmatch 05/26/21 05/26/21 05/26/21 Range/Units 03:07 03:20 03:24 WBC 41.3 H* (4.5-11.0) K/mm3 RBC 1.76 L (3.65-5.03) M/mm3 Hgb 5.0 L* (11.8-15.2) gm/dl Hct 16.7 L* (35.5-45.6) % MCV 95 H (84-94) fl MCHC 30 L (32-34) % Seg Neuts % (Manual) 80.5 H (40.0-70.0) % Lymphocytes % (Manual) 5.5 L (13.4-35.0) % Nucleated RBC % (0.0-0.9) % Seg Neutrophils # Man 33.2 H (1.8-7.7) K/mm3 Lymphocytes # (Manual) (1.2-5.4) K/mm3 Monocytes # (Manual) 1.7 H (0.0-0.8) K/mm3 Basophils # (Manual) 0.4 H (0.0-0.1) K/mm3 PT (12.2-14.9) Sec. INR (0.87-1.13) APTT (24.2-36.6) Sec. Fibrinogen (211-480) mg/dl D-Dimer (0-234) ng/mlDDU Heparin Anti-Xa Level (0.3-0.7) U.I./ml ABG pH (7.320-7.450) POC ABG pCO2 (32.0-48.0) mmHg POC ABG pO2 (83-108) mmHg ABG Hemoglobin (12.0-17.5) ABG Oxyhemoglobin (94-98) ABG Potassium (3.40-4.50) mmol/L ABG Chloride (98-107) mmol/L ABG Glucose (65-95) mg/dL Sodium (137-145) mmol/L Potassium (3.6-5.0) mmol/L Chloride (98-107) mmol/L Carbon Dioxide (22-30) mmol/L BUN (9-20) mg/dL Creatinine (0.8-1.3) mg/dL Glucose (75-100) mg/dL POC Glucose < 10 L (70-105) mg/dL Lactic Acid (0.7-2.0) mmol/L Calcium (8.4-10.2) mg/dL Phosphorus (2.5-4.5) mg/dL Ferritin (30.0-300.0) ng/mL AST (5-40) units/L ALT (7-56) units/L Lactate Dehydrogenase (91-180) units/L Total Protein (6.3-8.2) g/dL Albumin (3.9-5) g/dL Arterial Blood Glucose (65-95) mg/dL Arterial Blood Ionized Calcium (4.6-5.3) mg/dL Crossmatch See Detail 05/26/21 05/26/21 05/26/21 Range/Units 03:24 03:24 03:42 WBC (4.5-11.0) K/mm3 RBC (3.65-5.03) M/mm3 Hgb (11.8-15.2) gm/dl Hct (35.5-45.6) % MCV (84-94) fl MCHC (32-34) % Seg Neuts % (Manual) (40.0-70.0) % Lymphocytes % (Manual) (13.4-35.0) % Nucleated RBC % (0.0-0.9) % Seg Neutrophils # Man (1.8-7.7) K/mm3 Lymphocytes # (Manual) (1.2-5.4) K/mm3 Monocytes # (Manual) (0.0-0.8) K/mm3 Basophils # (Manual) (0.0-0.1) K/mm3 PT (12.2-14.9) Sec. INR (0.87-1.13) APTT 152.2 H* (24.2-36.6) Sec. Fibrinogen (211-480) mg/dl D-Dimer (0-234) ng/mlDDU Heparin Anti-Xa Level (0.3-0.7) U.I./ml ABG pH (7.320-7.450) POC ABG pCO2 (32.0-48.0) mmHg POC ABG pO2 (83-108) mmHg ABG Hemoglobin (12.0-17.5) ABG Oxyhemoglobin (94-98) ABG Potassium (3.40-4.50) mmol/L ABG Chloride (98-107) mmol/L ABG Glucose (65-95) mg/dL Sodium (137-145) mmol/L Potassium 6.1 H* D (3.6-5.0) mmol/L Chloride (98-107) mmol/L Carbon Dioxide 8 L* D (22-30) mmol/L BUN 48 H (9-20) mg/dL Creatinine 2.6 H (0.8-1.3) mg/dL Glucose 478 H (75-100) mg/dL POC Glucose (70-105) mg/dL Lactic Acid 21.40 H* (0.7-2.0) mmol/L Calcium 8.2 L (8.4-10.2) mg/dL Phosphorus (2.5-4.5) mg/dL Ferritin (30.0-300.0) ng/mL AST 1587 H (5-40) units/L ALT 1311 H (7-56) units/L Lactate Dehydrogenase (91-180) units/L Total Protein 3.2 L D (6.3-8.2) g/dL Albumin 1.4 L (3.9-5) g/dL Arterial Blood Glucose (65-95) mg/dL Arterial Blood Ionized Calcium (4.6-5.3) mg/dL Crossmatch 05/26/21 05/26/21 05/26/21 Range/Units 03:46 05:27 05:56 WBC (4.5-11.0) K/mm3 RBC (3.65-5.03) M/mm3 Hgb (11.8-15.2) gm/dl Hct (35.5-45.6) % MCV (84-94) fl MCHC (32-34) % Seg Neuts % (Manual) (40.0-70.0) % Lymphocytes % (Manual) (13.4-35.0) % Nucleated RBC % (0.0-0.9) % Seg Neutrophils # Man (1.8-7.7) K/mm3 Lymphocytes # (Manual) (1.2-5.4) K/mm3 Monocytes # (Manual) (0.0-0.8) K/mm3 Basophils # (Manual) (0.0-0.1) K/mm3 PT (12.2-14.9) Sec. INR (0.87-1.13) APTT (24.2-36.6) Sec. Fibrinogen (211-480) mg/dl D-Dimer (0-234) ng/mlDDU Heparin Anti-Xa Level (0.3-0.7) U.I./ml ABG pH 7.062 L (7.320-7.450) POC ABG pCO2 25.6 L (32.0-48.0) mmHg POC ABG pO2 148.1 H (83-108) mmHg ABG Hemoglobin 7.5 L (12.0-17.5) ABG Oxyhemoglobin (94-98) ABG Potassium 6.5 H (3.40-4.50) mmol/L ABG Chloride 110.0 H (98-107) mmol/L ABG Glucose 134 H (65-95) mg/dL Sodium (137-145) mmol/L Potassium (3.6-5.0) mmol/L Chloride (98-107) mmol/L Carbon Dioxide (22-30) mmol/L BUN (9-20) mg/dL Creatinine (0.8-1.3) mg/dL Glucose (75-100) mg/dL POC Glucose 167 H 128 H (70-105) mg/dL Lactic Acid (0.7-2.0) mmol/L Calcium (8.4-10.2) mg/dL Phosphorus (2.5-4.5) mg/dL Ferritin (30.0-300.0) ng/mL AST (5-40) units/L ALT (7-56) units/L Lactate Dehydrogenase (91-180) units/L Total Protein (6.3-8.2) g/dL Albumin (3.9-5) g/dL Arterial Blood Glucose 134 H (65-95) mg/dL Arterial Blood Ionized Calcium 4.4 L (4.6-5.3) mg/dL Crossmatch 05/26/21 05/26/21 05/26/21 Range/Units 06:38 07:12 07:19 WBC (4.5-11.0) K/mm3 RBC (3.65-5.03) M/mm3 Hgb (11.8-15.2) gm/dl Hct (35.5-45.6) % MCV (84-94) fl MCHC (32-34) % Seg Neuts % (Manual) (40.0-70.0) % Lymphocytes % (Manual) (13.4-35.0) % Nucleated RBC % (0.0-0.9) % Seg Neutrophils # Man (1.8-7.7) K/mm3 Lymphocytes # (Manual) (1.2-5.4) K/mm3 Monocytes # (Manual) (0.0-0.8) K/mm3 Basophils # (Manual) (0.0-0.1) K/mm3 PT 27.0 H (12.2-14.9) Sec. INR 2.27 H (0.87-1.13) APTT 63.6 H* (24.2-36.6) Sec. Fibrinogen 108 L* (211-480) mg/dl D-Dimer 8612.82 H (0-234) ng/mlDDU Heparin Anti-Xa Level 0.10 L (0.3-0.7) U.I./ml ABG pH (7.320-7.450) POC ABG pCO2 (32.0-48.0) mmHg POC ABG pO2 (83-108) mmHg ABG Hemoglobin (12.0-17.5) ABG Oxyhemoglobin (94-98) ABG Potassium (3.40-4.50) mmol/L ABG Chloride (98-107) mmol/L ABG Glucose (65-95) mg/dL Sodium (137-145) mmol/L Potassium (3.6-5.0) mmol/L Chloride (98-107) mmol/L Carbon Dioxide (22-30) mmol/L BUN (9-20) mg/dL Creatinine (0.8-1.3) mg/dL Glucose (75-100) mg/dL POC Glucose 158 H 124 H (70-105) mg/dL Lactic Acid (0.7-2.0) mmol/L Calcium (8.4-10.2) mg/dL Phosphorus (2.5-4.5) mg/dL Ferritin (30.0-300.0) ng/mL AST (5-40) units/L ALT (7-56) units/L Lactate Dehydrogenase (91-180) units/L Total Protein (6.3-8.2) g/dL Albumin (3.9-5) g/dL Arterial Blood Glucose (65-95) mg/dL Arterial Blood Ionized Calcium (4.6-5.3) mg/dL Crossmatch 05/26/21 05/26/21 05/26/21 Range/Units 07:34 09:11 09:11 WBC 29.1 H (4.5-11.0) K/mm3 RBC 2.84 L (3.65-5.03) M/mm3 Hgb 7.8 L (11.8-15.2) gm/dl Hct 25.8 L D (35.5-45.6) % MCV (84-94) fl MCHC 30 L (32-34) % Seg Neuts % (Manual) (40.0-70.0) % Lymphocytes % (Manual) 3.0 L (13.4-35.0) % Nucleated RBC % 3.0 H (0.0-0.9) % Seg Neutrophils # Man 17.8 H (1.8-7.7) K/mm3 Lymphocytes # (Manual) 0.9 L (1.2-5.4) K/mm3 Monocytes # (Manual) (0.0-0.8) K/mm3 Basophils # (Manual) (0.0-0.1) K/mm3 PT (12.2-14.9) Sec. INR (0.87-1.13) APTT (24.2-36.6) Sec. Fibrinogen (211-480) mg/dl D-Dimer (0-234) ng/mlDDU Heparin Anti-Xa Level (0.3-0.7) U.I./ml ABG pH 7.048 L (7.320-7.450) POC ABG pCO2 29.7 L (32.0-48.0) mmHg POC ABG pO2 79.9 L (83-108) mmHg ABG Hemoglobin 7.9 L (12.0-17.5) ABG Oxyhemoglobin 89.6 L (94-98) ABG Potassium 5.2 H (3.40-4.50) mmol/L ABG Chloride 109.0 H (98-107) mmol/L ABG Glucose 144 H (65-95) mg/dL Sodium 149 H D (137-145) mmol/L Potassium (3.6-5.0) mmol/L Chloride 107.6 H (98-107) mmol/L Carbon Dioxide 11 L (22-30) mmol/L BUN 51 H (9-20) mg/dL Creatinine 2.5 H (0.8-1.3) mg/dL Glucose 150 H (75-100) mg/dL POC Glucose (70-105) mg/dL Lactic Acid (0.7-2.0) mmol/L Calcium 7.0 L (8.4-10.2) mg/dL Phosphorus 7.30 H (2.5-4.5) mg/dL Ferritin (30.0-300.0) ng/mL AST 4071 H (5-40) units/L ALT 2728 H (7-56) units/L Lactate Dehydrogenase (91-180) units/L Total Protein 3.2 L (6.3-8.2) g/dL Albumin 1.5 L (3.9-5) g/dL Arterial Blood Glucose 144 H (65-95) mg/dL Arterial Blood Ionized Calcium (4.6-5.3) mg/dL Crossmatch 05/26/21 05/26/21 05/26/21 Range/Units 09:11 10:32 10:32 WBC (4.5-11.0) K/mm3 RBC (3.65-5.03) M/mm3 Hgb (11.8-15.2) gm/dl Hct (35.5-45.6) % MCV (84-94) fl MCHC (32-34) % Seg Neuts % (Manual) (40.0-70.0) % Lymphocytes % (Manual) (13.4-35.0) % Nucleated RBC % (0.0-0.9) % Seg Neutrophils # Man (1.8-7.7) K/mm3 Lymphocytes # (Manual) (1.2-5.4) K/mm3 Monocytes # (Manual) (0.0-0.8) K/mm3 Basophils # (Manual) (0.0-0.1) K/mm3 PT (12.2-14.9) Sec. INR (0.87-1.13) APTT (24.2-36.6) Sec. Fibrinogen 118 L* (211-480) mg/dl D-Dimer (0-234) ng/mlDDU Heparin Anti-Xa Level (0.3-0.7) U.I./ml ABG pH (7.320-7.450) POC ABG pCO2 (32.0-48.0) mmHg POC ABG pO2 (83-108) mmHg ABG Hemoglobin (12.0-17.5) ABG Oxyhemoglobin (94-98) ABG Potassium (3.40-4.50) mmol/L ABG Chloride (98-107) mmol/L ABG Glucose (65-95) mg/dL Sodium (137-145) mmol/L Potassium (3.6-5.0) mmol/L Chloride (98-107) mmol/L Carbon Dioxide (22-30) mmol/L BUN (9-20) mg/dL Creatinine (0.8-1.3) mg/dL Glucose (75-100) mg/dL POC Glucose (70-105) mg/dL Lactic Acid 21.80 H* 21.80 H* (0.7-2.0) mmol/L Calcium (8.4-10.2) mg/dL Phosphorus (2.5-4.5) mg/dL Ferritin (30.0-300.0) ng/mL AST (5-40) units/L ALT (7-56) units/L Lactate Dehydrogenase (91-180) units/L Total Protein (6.3-8.2) g/dL Albumin (3.9-5) g/dL Arterial Blood Glucose (65-95) mg/dL Arterial Blood Ionized Calcium (4.6-5.3) mg/dL Crossmatch Assessment and Plan Cultures: Blood culture no growth so far Covid PCR: Pending A/P: 70-year-old male past medical history high blood pressure and developed a GI bleed #SIRS versus sepsis: With hypothermia and leukocytosis. No confirmed source of sepsis yet. Leukocytosis can be present in the setting of large GI bleeding. #Covid PUI: With bilateral opacities normal abdominal x-ray, follow-up PCR. #GI bleeding: Patient too unstable for embolization. #SHAINA on CKD: Renally dose medications Recs: -Continue cefepime/azithro -Continue vancomycin for now, stop if blood cultures negative x48 hours -If COVID positive and CrCL > 30 ok to start Remdesivir. Renal function pretty borderline right now, however. -Follow up blood cultures Thank you for the consult, we will continue to follow. MD Emilee [facility] O: [phone] F: [phone]
[2021-05-26 14:50] LABS: INR 2.83 (0.87-1.13); Partial Thromboplastin Time 53.3 Sec. (24.2-36.6)
[2021-05-26 16:27] LABS: Hematocrit 31.2 % (35.5-45.6); Hemoglobin 9.9 gm/dl (11.8-15.2); Mean Corpuscular HGB Conc 32 % (32-34); Mean Corpuscular Volume 90 fl (84-94); Platelet Count 157 K/mm3 (140-440); Red Blood Count 3.45 M/mm3 (3.65-5.03); Red Cell Distribution Width 15.1 % (13.2-15.2)
[2021-05-26] MEDS: LACTATED RINGERS 1,000 ML IV SCH ×2 (16:56→17:04)
[2021-05-26 17:55] LABS: Band Neutrophils # (Manual) 5.9 K/mm3; Myelocytes # (Manual) 5.1 K/mm3; Platelet Estimate Consistent w Auto; Total Cells Counted 100
--- NOTE | 2021-05-26 18:20 | Progress Note ---
Assessment and Plan Assessment and plan: This is a 70 year old male with htn admitted with sepsis now s/p cardiac arrest, hypovolemic shock, sara, covid 19 pui Neuro: Acute metabolic encephalopathy -Possible anoxic brain injury -Neurology consulted, appreciate recommendations -Unable to obtain CT head at this time due to instability -EEG pending -Patient is sedated at this time Cardio: S/p cardiac arrest, A. fib with RVR ,hypotension, h/o HTN -Cardiology consulted, appreciate recommendations -Echocardiogram pending -Patient is currently maxed on norepinephrine, epinephrine, phenylepinephrine, vasopressin and has a bicarb drip infusing -Blood pressure monitoring via A-line -MAP goal greater than 60 -Echo pending -hold antihypertensives at this time Respiratory: Acute hypoxic respiratory failure -CCM consulted, appreciate recommendations -Intubated 05/26 with 7.5 oett at 24 lips -A.m. vent settings: AC rate 28, tidal volume 450, FiO2 100%, PEEP 8 -See RT notes for titration -Daily CXR and ABG -VAP bundle -Continuous SPO2 monitoring GI: GI bleed, transaminitis -GI consulted, appreciate recommendations -05/26 EGD showed large duodenal ulcer -Protonix drip -Trend LFTs -N.p.o. : Acute kidney injury, hypernatremia, hypercholoremia, metabolic acidosis -Nephrology consulted, appreciate recommendations -Sodium bicarb drip -s/p 2 A of bicarb post cardiac arrest -Avoid nephrotoxic medications -Renally dose medications -Strict intake and output -Daily weights -Trend BMP Endo: NAD -monitor for hypoglycemia -accucheck q4 -Avoid hypoglycemia ID: Sepsis vs SIRS, hypothermia, Covid 19 pui, lactic acidosis -ID consulted, appreciate recommendations -Antibiotic therapy with azithromycin, cefepime, vancomycin -Received 2 L LR, ~7.9 L NS -COVID-19 pending -Blood cultures x2 -Monitor fever and leukocytosis curve -Radha hugger in place hypothermia -Trend lactic acid Heme: DIC, Acute blood loss anemia, leukocytosis -Vascular surgery consulted, appreciate recommendations -Serial fibrinogen, D-dimer, PT/INR -s/p 6 unit PRBC, 1 unit cryoprecipitate -Serial H&H -SCDs to bilateral lower extremities while in bed -Hold anticoagulation -s/p heparin drip -Transfuse for hemoglobin less than 7 -Trend CBC The high probability of a clinically significant, sudden or life threatening deterioration of the [multi] system(s) required my full and direct attention, intervention and personal management. The aggregate critical care time was [120] minutes. This time is in addition to time spent performing reported procedures but includes the following: [x] Data Review and interpretation [x] Patient assessment and monitoring of vital signs [x] Documentation [x] Medication orders and management Disposition Plan: icu Total Time Spent with Patient (Minutes): 120 History Interval history: This is a 70-year-old male with HTN who is unvaccinated presents to the emergency department on 05/25 with near syncope, fatigue, lightheadedness and shortness of breath over the past 3 days. Work-up in the emergency department revealed leukocytosis, elevated D-dimer, lactic acidosis and acute kidney injury. Patient was admitted to the hospitalist service with sepsis and had a COVID-19 PUI. He was started on antibiotics and received a heparin bolus and was on a heparin drip. CCM and ID were consulted. 05/26: Patient noted to have large amount of rectal bleeding and agonal breathing with significant bradycardia. Patient was maxed on Levophed however he was still hypotensive. Patient was intubated by ED physician and subsequently had a cardiac arrest and ROSC was achieved. Heparin drip was continued and 2 units of PRBC to transfuse. Patient was started on D5 normal saline for hypoglycemia. GI and CCM were consulted at this time. 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 Today vasopressin, phenyl epinephrine and epinephrine drips were started and subsequently maxed. Patient received an EGD with GI which showed a large duodenal ulcer without active bleeding. IR was consulted patient with the patient was too unstable for transfer at this time. Patient received an A-line today. Hospitalist Physical - Constitutional Vitals: Temp Pulse Resp BP Pulse Ox 92.8 F L 119 H 27 H 79/46 100 05/26/21 11:30 05/26/21 15:54 05/26/21 16:00 05/26/21 15:54 05/26/21 16:00 General appearance: Present: other (intubated) - EENT ENT: dentition normal - Neck Neck: Present: normal ROM - Respiratory Respiratory effort: normal Respiratory: bilateral: diminished - Cardiovascular Rhythm: irregularly irregular Heart Sounds: Present: S1 & S2. Absent: systolic murmur, diastolic murmur - Extremities Extremities: no ischemia, pulses intact, pulses symmetrical Extremity abnormal: edema Peripheral Pulses: within normal limits - Abdominal General gastrointestinal: soft, non-tender, hypoactive bowel sounds - Integumentary Integumentary: Present: warm, dry - Psychiatric Psychiatric: other - Neurologic Neurologic: other (not interactive, sluggish pupils, weak cough/gag) - Allied Health Allied health notes reviewed: nursing, RT, social work HEART Score - HEART Score Troponin: Troponin T < 0.010 ng/mL (0.00-0.029) 05/25/21 18:53 Results - Labs CBC & Chem 7: 05/26/21 16:12 05/26/21 09:11 Labs: Laboratory Last Values WBC 23.4 K/mm3 (4.5-11.0) H 05/26/21 16:12 RBC 3.45 M/mm3 (3.65-5.03) L 05/26/21 16:12 Hgb 9.9 gm/dl (11.8-15.2) L 05/26/21 16:12 Hct 31.2 % (35.5-45.6) L 05/26/21 16:12 MCV 90 fl (84-94) 05/26/21 16:12 MCH 29 pg (28-32) 05/26/21 16:12 MCHC 32 % (32-34) 05/26/21 16:12 RDW 15.1 % (13.2-15.2) 05/26/21 16:12 Plt Count 157 K/mm3 (140-440) 05/26/21 16:12 Lymph % (Auto) Accounts Collector 05/25/21 18:53 Allen % (Auto) Accounts Collector 05/25/21 18:53 Eos % (Auto) Accounts Collector 05/25/21 18:53 Baso % (Auto) Accounts Collector 05/25/21 18:53 Lymph # (Auto) Accounts Collector 05/25/21 18:53 Allen # (Auto) Accounts Collector 05/25/21 18:53 Eos # (Auto) Accounts Collector 05/25/21 18:53 Baso # (Auto) Accounts Collector 05/25/21 18:53 Add Manual Diff Complete 05/26/21 16:12 Total Counted 100 05/26/21 16:12 Seg Neutrophils % Accounts Collector 05/25/21 18:53 Seg Neuts % (Manual) 25.0 % (40.0-70.0) L 05/26/21 16:12 Band Neutrophils % 25.0 % 05/26/21 16:12 Lymphocytes % (Manual) 17.0 % (13.4-35.0) 05/26/21 16:12 Monocytes % (Manual) 2.0 % (0.0-7.3) 05/26/21 16:12 Basophils % (Manual) 1.0 % (0.0-1.8) 05/26/21 03:24 Metamyelocytes % 9.0 % 05/26/21 16:12 Myelocytes % 22.0 % 05/26/21 16:12 Nucleated RBC % 3.0 % (0.0-0.9) H 05/26/21 16:12 Seg Neutrophils # Accounts Collector 05/25/21 18:53 Seg Neutrophils # Man 5.9 K/mm3 (1.8-7.7) 05/26/21 16:12 Band Neutrophils # 5.9 K/mm3 05/26/21 16:12 Lymphocytes # (Manual) 4.0 K/mm3 (1.2-5.4) 05/26/21 16:12 Abs React Lymphs (Man) 0.0 K/mm3 05/26/21 16:12 Monocytes # (Manual) 0.5 K/mm3 (0.0-0.8) 05/26/21 16:12 Eosinophils # (Manual) 0.0 K/mm3 (0.0-0.4) 05/26/21 16:12 Basophils # (Manual) 0.0 K/mm3 (0.0-0.1) 05/26/21 16:12 Metamyelocytes # 2.1 K/mm3 05/26/21 16:12 Myelocytes # 5.1 K/mm3 05/26/21 16:12 Promyelocytes # 0.0 K/mm3 05/26/21 16:12 Blast Cells # 0.0 K/mm3 05/26/21 16:12 WBC Morphology Not Reportable 05/26/21 16:12 Hypersegmented Neuts Not Reportable 05/26/21 16:12 Hyposegmented Neuts Not Reportable 05/26/21 16:12 Hypogranular Neuts Not Reportable 05/26/21 16:12 Smudge Cells Not Reportable 05/26/21 16:12 Toxic Granulation Not Reportable 05/26/21 16:12 Toxic Vacuolation Not Reportable 05/26/21 16:12 Dohle Bodies Not Reportable 05/26/21 16:12 Pelger-Huet Anomaly Not Reportable 05/26/21 16:12 Chela Rods Not Reportable 05/26/21 16:12 Platelet Estimate Consistent w auto 05/26/21 16:12 Clumped Platelets Not Reportable 05/26/21 16:12 Plt Clumps, EDTA Not Reportable 05/26/21 16:12 Large Platelets Not Reportable 05/26/21 16:12 Giant Platelets Not Reportable 05/26/21 16:12 Platelet Satelliting Not Reportable 05/26/21 16:12 Plt Morphology Comment Not Reportable 05/26/21 16:12 RBC Morphology Not Reportable 05/26/21 16:12 Dimorphic RBCs Not Reportable 05/26/21 16:12 Polychromasia Not Reportable 05/26/21 16:12 Hypochromasia Not Reportable 05/26/21 16:12 Poikilocytosis Not Reportable 05/26/21 16:12 Anisocytosis Not Reportable 05/26/21 16:12 Microcytosis Not Reportable 05/26/21 16:12 Macrocytosis Not Reportable 05/26/21 16:12 Spherocytes Not Reportable 05/26/21 16:12 Pappenheimer Bodies Not Reportable 05/26/21 16:12 Sickle Cells Not Reportable 05/26/21 16:12 Target Cells Not Reportable 05/26/21 16:12 Tear Drop Cells Not Reportable 05/26/21 16:12 Ovalocytes Not Reportable 05/26/21 16:12 Helmet Cells Not Reportable 05/26/21 16:12 Leos-Tushka Bodies Not Reportable 05/26/21 16:12 Easley Rings Not Reportable 05/26/21 16:12 Jeni Cells Not Reportable 05/26/21 16:12 Bite Cells Not Reportable 05/26/21 16:12 Crenated Cell Not Reportable 05/26/21 16:12 Elliptocytes Not Reportable 05/26/21 16:12 Acanthocytes (Spur) Not Reportable 05/26/21 16:12 Rouleaux Not Reportable 05/26/21 16:12 Hemoglobin C Crystals Not Reportable 05/26/21 16:12 Schistocytes Not Reportable 05/26/21 16:12 Malaria parasites Not Reportable 05/26/21 16:12 Justin Bodies Not Reportable 05/26/21 16:12 Hem Pathologist Commnt No 05/26/21 16:12 PT 32.0 Sec. (12.2-14.9) H 05/26/21 13:47 INR 2.83 (0.87-1.13) H 05/26/21 13:47 APTT 53.3 Sec. (24.2-36.6) H 05/26/21 13:47 Fibrinogen 115 mg/dl (211-480) L* 05/26/21 13:47 D-Dimer 8989.09 ng/mlDDU (0-234) H 05/26/21 13:47 Heparin Anti-Xa Level 0.10 U.I./ml (0.3-0.7) L 05/26/21 07:19 ABG pH 7.048 (7.320-7.450) L 05/26/21 07:34 POC ABG pCO2 29.7 mmHg (32.0-48.0) L 05/26/21 07:34 POC ABG pO2 79.9 mmHg (83-108) L 05/26/21 07:34 POC ABG HCO3 8.0 05/26/21 07:34 ABG O2 Saturation 91.1 (0-100) 05/26/21 07:34 POC ABG Base Excess -20.9 05/26/21 07:34 ABG Hemoglobin 7.9 (12.0-17.5) L 05/26/21 07:34 ABG Oxyhemoglobin 89.6 (94-98) L 05/26/21 07:34 ABG Methemoglobin 0.3 (0.0-1.5) 05/26/21 07:34 ABG Sodium 141.1 mmol/L (136.0-145.0) 05/26/21 07:34 ABG Potassium 5.2 mmol/L (3.40-4.50) H 05/26/21 07:34 ABG Chloride 109.0 mmol/L (98-107) H 05/26/21 07:34 ABG Glucose 144 mg/dL (65-95) H 05/26/21 07:34 Carboxyhemoglobin 1.3 (0.5-1.5) 05/26/21 07:34 FiO2 % 60.0 05/26/21 07:34 Sodium 149 mmol/L (137-145) H D 05/26/21 09:11 Potassium 4.8 mmol/L (3.6-5.0) D 05/26/21 09:11 Chloride 107.6 mmol/L (98-107) H 05/26/21 09:11 Carbon Dioxide 11 mmol/L (22-30) L 05/26/21 09:11 Anion Gap 35 mmol/L 05/26/21 09:11 BUN 51 mg/dL (9-20) H 05/26/21 09:11 Creatinine 2.5 mg/dL (0.8-1.3) H 05/26/21 09:11 Estimated GFR 31 ml/min 05/26/21 09:11 BUN/Creatinine Ratio 20 % 05/26/21 09:11 Glucose 150 mg/dL (75-100) H 05/26/21 09:11 POC Glucose 163 mg/dL (70-105) H 05/26/21 16:59 Lactic Acid 18.60 mmol/L (0.7-2.0) H* 05/26/21 16:12 Calcium 7.0 mg/dL (8.4-10.2) L 05/26/21 09:11 Phosphorus 7.30 mg/dL (2.5-4.5) H 05/26/21 09:11 Magnesium 2.30 mg/dL (1.7-2.3) 05/26/21 09:11 Ferritin 521.7 ng/mL (30.0-300.0) H 05/25/21 18:53 Total Bilirubin 1.00 mg/dL (0.1-1.2) 05/26/21 09:11 AST 4071 units/L (5-40) H 05/26/21 09:11 ALT 2728 units/L (7-56) H 05/26/21 09:11 Alkaline Phosphatase 93 units/L (35-129) 05/26/21 09:11 Lactate Dehydrogenase 191 units/L (91-180) H 05/25/21 18:53 Troponin T < 0.010 ng/mL (0.00-0.029) 05/25/21 18:53 C-Reactive Protein 0.00 mg/dL (0.00-1.30) 05/25/21 18:53 Total Protein 3.2 g/dL (6.3-8.2) L 05/26/21 09:11 Albumin 1.5 g/dL (3.9-5) L 05/26/21 09:11 Albumin/Globulin Ratio 0.9 % 05/26/21 09:11 Arterial Blood Glucose 144 mg/dL (65-95) H 05/26/21 07:34 Arterial Blood Ionized Calcium 4.4 mg/dL (4.6-5.3) L 05/26/21 05:56 Blood Type O POSITIVE 05/26/21 03:20 Antibody Screen Negative 05/26/21 03:20 Crossmatch See Detail 05/26/21 03:20 Microbiology: Microbiology 05/25/21 18:53 Peripheral/Venous Blood Culture - Preliminary Culture in Progress 05/25/21 18:53 Peripheral/Venous Blood Culture - Preliminary Culture in Progress Mcpherson/IV: Voiding Method Incontinent Active Medications - Current Medications Current Medications: Generic Name Dose Route Start Last Admin Trade Name Freq PRN Reason Stop Dose Admin Acetaminophen 650 mg 05/25/21 22:25 Acetaminophen 325 Mg Tab PO Q4H PRN Pain MILD(1-3)/Fever >100.5/MONSON Albuterol 2.5 mg 05/25/21 22:25 Albuterol 2.5 Mg/3 Ml Nebu IH Q4HRT PRN Shortness Of Breath Albuterol/Ipratropium 1 ampul 05/26/21 02:00 05/26/21 15:54 Ipratropium/Albuterol Sulfate 3 Ml Ampul.Neb IH Not Given Q6HRT STEPHANE Dextrose 25 ml 05/26/21 03:15 Dextrose 50% In Water (25gm) 50 Ml Syringe IV Q30MIN PRN Hypoglycemia Protocol Hydralazine HCl 10 mg 05/25/21 22:38 Hydralazine 20 Mg/1 Ml Inj IV Q6H PRN Blood Pressure Hydromorphone HCl 0.5 mg 05/25/21 22:25 Hydromorphone 1 Mg/1 Ml Inj IV Q3H PRN Pain , Severe (7-10) NORepinephrine/NS 8 MG-250 ML 8 mg in 250 mls @ 3.75 mls/hr 05/25/21 22:00 05/26/21 14:00 Norepinephrine/Ns 8 Mg-250 Ml (Double Conc) IV 30 mcg/min TITRATE STEPHANE 56.25 mls/hr Administration Protocol 2 MCG/MIN Pantoprazole Sodium 80 mg/ 100 mls @ 10 mls/hr 05/26/21 04:00 05/26/21 13:09 Sodium Chloride IV 8 mg/hr DIRECT STEPHANE 10 mls/hr Administration 8 MG/HR Azithromycin 500 mg in 250 mls @ 250 mls/hr 05/26/21 20:00 Zithromax/Ns IV Q24H STEPHANE Cefepime HCl 1 gm in 100 mls @ 200 mls/hr 05/26/21 05:00 05/26/21 12:26 Cefepime/Ns 1 Gm/100 Ml IV Infused Q12H STEPHANE Infusion Protocol Vancomycin HCl 1,500 mg/ 530 mls @ 333.333 mls/hr 05/27/21 12:00 Sodium Chloride IV Q24H STEPHANE Sodium Bicarbonate 150 meq/ 1,150 mls @ 175 mls/hr 05/26/21 06:00 05/26/21 13:36 Dextrose IV 250 mls/hr DIRECT STEPHANE Infusion Vasopressin 20 unit/ Sodium 101 mls @ 9.09 mls/hr 05/26/21 08:30 05/26/21 08:30 Chloride IV 0.03 units/min TITR STEPHANE 9.09 mls/hr Administration Protocol 0.03 UNITS/MIN Epinephrine 16 mg/ Sodium 250 mls @ 1.875 mls/hr 05/26/21 08:30 05/26/21 17:36 Chloride IV 10 mcg/min TITR STEPHANE 9.375 mls/hr Administration Protocol 2 MCG/MIN Sodium Chloride 500 mls @ 1 mls/hr 05/26/21 08:00 05/26/21 13:29 Nacl 0.9% 500 Ml IV 1 mls/hr DIRECT PRN Administration ARTERIAL LINE FLUSH Phenylephrine HCl 100 mg/ 100 mls @ 3 mls/hr 05/26/21 10:00 05/26/21 14:00 Sodium Chloride IV 400 mcg/min TITR STEPHANE 24 mls/hr Administration Protocol 50 MCG/MIN Sodium Chloride 500 mls @ 0 mls/hr 05/26/21 12:08 Nacl 0.9% 500 Ml IV ONCE STEPHANE As Directed Lactated Ringer's 1,000 mls @ 999 mls/hr 05/26/21 14:00 05/26/21 17:04 Lactated Ringers IV 05/27/21 15:01 999 mls/hr DIRECT STEPHANE Administration Ondansetron HCl 4 mg 05/25/21 22:25 Ondansetron 4 Mg/2 Ml Inj IV Q8H PRN Nausea And Vomiting Sodium Bicarbonate 50 meq 05/26/21 08:00 05/26/21 09:23 Sodium Bicarb 8.4% 50 Meq/50 Ml Syringe IV 05/27/21 08:01 50 meq ONCE STEPHANE Administration Sodium Chloride 10 ml 05/26/21 10:00 05/26/21 10:00 Sodium Chloride 0.9% 10 Ml Flush Syringe IV 10 ml BID STEPHANE Administration Sodium Chloride 10 ml 05/25/21 22:25 Sodium Chloride 0.9% 10 Ml Flush Syringe IV PRN PRN LINE FLUSH Nutrition/Malnutrition Assess - Dietary Evaluation Nutrition/Malnutrition Findings: Nutrition Notes Start: 05/26/21 15:39 Freq: Status: Active Protocol: Document 05/26/21 15:39 GB (Rec: 05/26/21 16:23 GB [id number]) Nutrition Notes Need for Assessment generated from: certified travel counselor,MST Initial or Follow up Assessment Current Diagnosis CKD(stage I-IV),Sepsis Other Pertinent Diagnosis duodenal ulcer, intubated, unresponsive, not sedated Current Diet cardiac Labs/Tests 05/26: glucose 150, BUN 51, creatinine 2.5, Na 149, Ca 7, P 7.3, AST 4071, ALT 2728 Pertinent Medications epinephrine/NaCl, norepinephrine/Ns8/Mg250, Phenylephrine HCL/NaCl, NaBicarbonate/D5 250ml/hr ( 1150ml per schedule : 196kcal) , vasopressin/NaCl Height 6 ft 3 in Weight 103 kg Elliott Body Weight (kg) 89.09 BMI 28.3 Weight change and time frame admit weight Weight Status Appropriate Subjective/Other Information multimedia authoring specialist for MST score 2 MD notes 05/26: intubated/ unsedated/unresponsive. NG tube extends within the stomach. The side hole may be just distal to the GE juction . NG tip in stomach/not in duodenum. Okay to keep NG in for meds/suction. Duodenal ulcer. Cardiac arrest x2. BM: 05/26 RD: okay to be NPO up to 6days . When stable: recommend consult for write/manage TF, Nepro. Percent of energy/protein needs met: 0% - intubated Burn Absent Trauma Absent GI Symptoms Other Difficulty In Swallowing Food Allergy No Skin Integrity/Comment no reported complications Current % PO Other Minimum of two criteria No #1 Nutrition Diagnosis Swallowing difficulty Etiology cardiac arrest (mulitple times ) As Evidenced by Signs and Symptoms intubated/unsedated/ unresponsive Is patient on ventilator? Yes Is Patient Ambulatory and/or Out of Bed No REE-([facility]-confined to bed) 7314.245 Calculation Used for Recommendations [facility] Additional Notes Protein: 1-1.2 g/kg @ 103k-124g Fluids: 1ml/kcal or per MD Nutrition Intervention Change Diet Order: D/C: cardiac NPO Nutrition Support: When medically feasible send consult order for write/manage TF Recommending Nepro when pt is more stable. Goal #1 Consult for write/manage TF initiated by NPO x 6days Goal #2 TF Nepro started Follow-Up By: 05/29/21 Additional Comments f/u: GI okay for TF, start Nepro, vent status
[2021-05-26 19:24] VITALS: BP 75/47
[2021-05-26] MEDS ORDERED: AZITHROMYCIN/NS 500 MG/250 ML 500 MG/250 ML BAG IV SCH ×2 (20:00)
[2021-05-26 22:09] LABS: Hematocrit 28.6 % (35.5-45.6)
[2021-05-26 22:19] LABS: Calcium 7.4 mg/dL (8.4-10.2)
--- NOTE | 2021-05-26 22:23 | Event Note ---
Date: 05/26/21 Patient daughter called as and she made the patient DNR DO NOT RESUSCITATE in front of nurse and 2 other family member.
[2021-05-26 22:39] LABS: INR 2.85 (0.87-1.13)
[2021-05-26 22:40] LABS: Partial Thromboplastin Time 57.5 Sec. (24.2-36.6)
--- NOTE | 2021-05-27 00:12 | Death Note ---
Note Date of : 05/26/21 Time of : 11:42 Time Pronounced: 11:45 - Preliminary Cause of (problem) (1) Sepsis Preliminary cause of Called by the nurse that the patient is not breathing. I examined the patient patient is pulseless, patient has no blood pressure no reflex patient at 11:42 PM on 05/26/2021 due to cardiopulmonary arrest, metabolic encephalopathy, suspected Covid infection. Prognosis is poor and patient is DNR. Family at bedside (2) Acute metabolic encephalopathy Preliminary cause of (3) Suspected COVID-19 virus infection Preliminary cause of (4) SHAINA (acute kidney injury) Preliminary cause of (5) Hypertension Preliminary cause of (6) Hypothermia Preliminary cause of (7) Elevated d-dimer Preliminary cause of (8) DVT prophylaxis Preliminary cause of
[2021-05-27] MEDS ORDERED: VANCOMYCIN 1,500 MG in SODIUM CHLORIDE 0.9% 500 ML 500 ML IV SCH (12:00)
--- NOTE | 2021-05-27 15:57 | Death Note ---
Note Date of : 05/27/21
--- NOTE | 2021-05-27 15:59 | Death Summary ---
<JESSIE CORRALESBetzaida - Last Filed: 05/27/21 16:10> Summary - Providers Date of service: 05/27/21 Consults: 05/25/21 21:43 Consult to Physician [CONS] Urgent Comment: Consulting Provider: BATSHEAV FLAHERTY Physician Instructions: Reason For Exam: Sepsis 05/25/21 22:28 Consult to Physician [CONS] Routine Comment: Consulting Provider: ARYAN KRISHNAN Physician Instructions: Reason For Exam: shaina 05/26/21 03:26 Consult to Physician [CONS] Routine Comment: Consulting Provider: JAMIE IZQUIERDO Physician Instructions: Reason For Exam: Rectal bleeding 05/26/21 04:18 Consult to Physician [CONS] Routine Comment: Consulting Provider: LAYNE DENSON Physician Instructions: Reason For Exam: covid 05/26/21 07:18 Consult to Physician [CONS] Routine Comment: paged overhead/ cha Consulting Provider: DANTE CASTELLANOS Physician Instructions: Reason For Exam: s/p cardiac arrest 05/26/21 09:18 Consult to Physician [CONS] Routine Comment: noted/ cha Consulting Provider: ELVIRA MAJOR Physician Instructions: Reason For Exam: s/p cardiac arrest 05/26/21 12:15 Consult to Physician [CONS] Urgent Comment: dr. mckeon o/c / cha Consulting Provider: SAMEERA CALVO Physician Instructions: Reason For Exam: gi bleed Attending: GERRY GARCIA MD - summary Date of admission: 05/25/21 21:54 Date of : 05/26/21 Reason for admission: S/p cardiac arrest, hemorrhagic shock, SHAINA,ABLA, acute hypoxic resp failure Significant findings: This is a 70-year-old male with HTN who is unvaccinated presents to the emergency department on 05/25 with near syncope, fatigue, lightheadedness and shortness of breath over the past 3 days. Work-up in the emergency department revealed leukocytosis, elevated D-dimer, lactic acidosis and acute kidney injury. Patient was admitted to the hospitalist service with sepsis and had a COVID-19 PUI. He was started on antibiotics and received a heparin bolus and was on a heparin drip. CCM and ID were consulted. On 05/26 patient noted to have large amount of rectal bleeding and agonal breathing with significant bradycardia. Patient was maxed on Levophed however he was still hypotensive. Patient was intubated by ED physician and subsequently had a cardiac arrest and ROSC was achieved. Heparin drip was continued and 2 units of PRBC to transfuse. Patient was started on D5 normal saline for hypoglycemia. GI and CCM were consulted at this time. 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 Today vasopressin, phenyl epinephrine and epinephrine drips were started and subsequently maxed. Patient received an EGD with GI which showed a large duodenal ulcer without active bleeding. IR was consulted patient with the patient was too unstable for transfer at this time. Patient received an A-line today. Patient received 1 full of cryo, multiple PRBCs, EGD which showed a duodenal ulcer, was maxed on Levophed, epinephrine, Cm-Synephrine, vasopressin and on a bicarb drip. Unfortunately patient suffered another cardiac arrest and ultimately was made a DNR by the family. Patient was pronounced by night hospitalist, Dr. Moya. S/p cardiac arrest Acute metabolic encephalopathy A. fib with RVR Acute hypoxic respiratory failure Duodenal Ulcer Disseminated intravascular coagulopathy GI bleed Transaminitis Acute kidney injury 2/2 vasomotor nephropathy Hypernatremia Hypercholoremia Metabolic Acidosis Covid 19 pui, Lactic acidosis Leukocytosis h/o HTN <GERRY GARCIA - Last Filed: 05/28/21 07:44> Summary - Providers Consults: 05/25/21 21:43 Consult to Physician [CONS] Urgent Comment: Consulting Provider: BATSHEVA FLAHERTY Physician Instructions: Reason For Exam: Sepsis 05/25/21 22:28 Consult to Physician [CONS] Routine Comment: Consulting Provider: ARYAN KRISHNAN Physician Instructions: Reason For Exam: shaina 05/26/21 03:26 Consult to Physician [CONS] Routine Comment: Consulting Provider: JAMIE IZQUIERDO Physician Instructions: Reason For Exam: Rectal bleeding 05/26/21 04:18 Consult to Physician [CONS] Routine Comment: Consulting Provider: LAYNE DENSON Physician Instructions: Reason For Exam: covid 05/26/21 07:18 Consult to Physician [CONS] Routine Comment: paged overhead/ cha Consulting Provider: DATNE CASTELLANOS Physician Instructions: Reason For Exam: s/p cardiac arrest 05/26/21 09:18 Consult to Physician [CONS] Routine Comment: noted/ cha Consulting Provider: ELVIRA MAJOR Physician Instructions: Reason For Exam: s/p cardiac arrest 05/26/21 12:15 Consult to Physician [CONS] Urgent Comment: dr. mckeon o/c / cha Consulting Provider: SAMEERA CALVO Physician Instructions: Reason For Exam: gi bleed Attending: GERRY GARCIA MD - summary Date of admission: 05/25/21 21:54 Significant findings: I saw and evaluated the patient. Discussed with the nurse practitioner and agree with their findings and plan as documented in this note.
--- NOTE | 2021-05-28 11:35 | Electrocardiograph Report ---
[facility] Test Date: 2021-05-26 Test Time: 11:07:03 Pat Name: SHARITA KENT Department: CCU Room: A260 1 Gender: M Measurement Operator: JESUSITA : 1950 Requested By: BENJAMIN COLLINS Order Number: [id number] Reading MD: Mauricio Sutton Measurements Intervals [place] Rate: 124 P: VT: QRS: 33 QRSD: 90 T: 178 QT: 345 QTc: 496 Interpretive Statements Atrial fibrillation Nonspecific T abnrm, anterolateral leads No previous ECG available for comparison Electronically Signed On 05-28-2021 11:35:21 EST by Mauricio Sutton
== END 2021-05-27 | DRG 871 ==
LOC: ED 18:03 → CC1 21:54
PROVIDERS: ADMIT Hospitalist; ATTEND Internal Medicine
PROC: 5A1935Z Respiratory Ventilation, Less than 24 Consecutive Hours (ICD-10-PCS; principal; 2021-05-26)
PROC: 0BH17EZ Insertion of Endotracheal Airway into Trachea, Via Natural or Artificial Opening (ICD-10-PCS; 2021-05-26)
PROC: 0DJ08ZZ Inspection of Upper Intestinal Tract, Via Natural or Artificial Opening Endoscopic (ICD-10-PCS; 2021-05-26)
PROC: 03HB33Z Insertion of Infusion Device into Right Radial Artery, Percutaneous Approach (ICD-10-PCS; 2021-05-26)
PROC: B34HZZZ Ultrasonography of Right Upper Extremity Arteries (ICD-10-PCS; 2021-05-26)
PROC: 4A033R1 Measurement of Arterial Saturation, Peripheral, Percutaneous Approach (ICD-10-PCS; 2021-05-26)
PROC: 30233M1 Transfusion of Nonautologous Plasma Cryoprecipitate into Peripheral Vein, Percutaneous Approach (ICD-10-PCS; 2021-05-26)
PROC: 30233N1 Transfusion of Nonautologous Red Blood Cells into Peripheral Vein, Percutaneous Approach (ICD-10-PCS; 2021-05-26)
DX: A41.9 Sepsis, unspecified organism (principal); G93.41 Metabolic encephalopathy; J96.01 Acute respiratory failure with hypoxia; D65 Disseminated intravascular coagulation [defibrination syndrome]; K26.4 Chronic or unspecified duodenal ulcer with hemorrhage; N17.0 Acute kidney failure with tubular necrosis; I48.20 Chronic atrial fibrillation, unspecified; E87.0 Hyperosmolality and hypernatremia; E87.2 Acidosis; D62 Acute posthemorrhagic anemia; I46.9 Cardiac arrest, cause unspecified; I10 Essential (primary) hypertension; R68.0 Hypothermia, not associated with low environmental temperature; R57.8 Other shock; Z20.822 Contact with and (suspected) exposure to COVID-19; R65.20 Severe sepsis without septic shock; E83.51 Hypocalcemia; E78.00 Pure hypercholesterolemia, unspecified; Z66 Do not resuscitate
CPT/HCPCS: 36415; 36600; 70450; 71045; 74018; 80048; 80053; 82140; 82728; 82805; 82962; 83615; 83735; 84100; 84145; 84484; 85007; 85014; 85018; 85025; 85049; 85379; 85384; 85520; 85610; 85730; 86140; 86850; 86900; 86901; 86920; 86965; 87040; 93005; 93306; 94002; 94003; 94640; 95819; G0378; C9113; J0171; J0330; J0456; J0461; J0610; J0692; J0696; J1644; J2370; J2405; J2543; J3370; J7030; J7040; J7042; J7050; J7070; J7120; P9012; P9016; U0003